=== PATIENT | male | born 1950 | race Caucasian/White ===

== ENCOUNTER → 2020-04-24 14:23 | Outpatient (BNVA) | payer MEDICARE, OTHER, SELFPAY | PROVIDERS: Family Provider Family Medicine; PCP Family Medicine; Visit Provider Internal Medicine Rheumatology | DX: M25.50 Pain in unspecified joint (principal); Z79.899 Other long term (current) drug therapy; Z11.1 Encounter for screening for respiratory tuberculosis; Z11.59 Encounter for screening for other viral diseases; R76.8 Other specified abnormal immunological findings in serum; M67.911 Unspecified disorder of synovium and tendon, right shoulder; R79.82 Elevated C-reactive protein (CRP); Z72.89 Other problems related to lifestyle; M19.049 Primary osteoarthritis, unspecified hand | CPT/HCPCS: 36415; 80076; 82306; 82565; 85025; 85651; 86140; 86480; 86704; 86803; 87340; 99214 ==

== ENCOUNTER 2020-04-30 13:17 | Outpatient (CLI) | payer MEDICARE, OTHER, SELFPAY ==
--- NOTE | 2020-04-30 13:23 | XR_ITS ---
WS: [id number] PROCEDURE: XR chest 2V* [id number] CLINICAL INFORMATION: inflammatory arthritis COMPARISON: FINDINGS: Heart: Normal cardiac silhouette. Aortic calcification. Tortuous thoracic aorta. Lungs: Moderate chronic emphysematous changes. No acute pulmonary infiltrates. No focal pneumonia. Tr humberto atelectasis/fibrosis left lower lobe. Bones: Normal visualized bony structures. XR/XR chest 2V* [id number] IMPRESSION: No acute chest findings.
== END 2020-04-30 13:18 | disposition home or self-care (01) ==
LOC: RADWPI 13:21
PROVIDERS: Family Provider Family Medicine; PCP Family Medicine; Visit Provider Internal Medicine Rheumatology
DX: M19.90 Unspecified osteoarthritis, unspecified site (principal)
CPT/HCPCS: 71046

== ENCOUNTER 2020-05-08 08:57 | Outpatient (CLI) | payer MEDICARE, OTHER, SELFPAY ==
--- NOTE | 2020-05-08 08:45 | MR_ITS ---
WS: [id number] MRI RIGHT SHOULDER NONCONTRAST TECHNIQUE: Sagittal T2, coronal T1, T2 and proton density imaging. Axial gradient PDE imaging. CLINICAL INFORMATION: M75.80 Other shoulder lesions, unspecified shoulder COMPARISON: None. FINDINGS: Moderate degenerative arthritis at the AC joint with small amount of subacromial/subdeltoid fluid. Mi ld edema at the AC joint. Subacromial space is preserved. No significant downsloping of the acromion. Supraspinatus is normal. Tiny undersurface tear at the distal insertion. Infraspinatus is normal. Normal teres minor and subscapularis. Distal subscapularis tendon appears in tact. Normal biceps tendon in the bicipital groove. Glenoid labrum appears grossly normal. Normal bic eps labral anchor. Normal visualized bone marrow signal. MR/MR shoulder RT wo con* [id number] IMPRESSION: 1. Moderate degenerative arthritis AC joint with a small amount of subacromial /subdeltoid fluid. 2. Tiny insertional tear at the supraspinatus insertion. Supraspinatus and rot ator cuff otherwise normal. 3. Normal biceps tendon in the bicipital groove. 4. Glenoid labrum and biceps labral anchor appears grossly intact.
== END 2020-05-08 08:58 | disposition home or self-care (01) ==
LOC: RADSHAW 09:04
PROVIDERS: PCP Family Medicine; Visit Provider Internal Medicine Rheumatology
DX: M75.81 Other shoulder lesions, right shoulder (principal); M19.011 Primary osteoarthritis, right shoulder; M75.101 Unspecified rotator cuff tear or rupture of right shoulder, not specified as traumatic; X58.XXXA Exposure to other specified factors, initial encounter
CPT/HCPCS: 73221

== ENCOUNTER → 2020-05-31 09:07 | Outpatient (BNVA) | payer MEDICARE, OTHER, SELFPAY | PROVIDERS: PCP Family Medicine; Visit Provider Internal Medicine Rheumatology | DX: M19.90 Unspecified osteoarthritis, unspecified site (principal); M67.911 Unspecified disorder of synovium and tendon, right shoulder; Z79.899 Other long term (current) drug therapy; R76.8 Other specified abnormal immunological findings in serum; Z79.52 Long term (current) use of systemic steroids | CPT/HCPCS: 20610; 36415; 82310; 84443; 99214; J1030 ==

== ENCOUNTER → 2020-08-28 15:06 | Outpatient (BNVA) | payer MEDICARE, OTHER, SELFPAY | PROVIDERS: PCP Family Medicine; Visit Provider Internal Medicine Rheumatology | DX: M06.041 Rheumatoid arthritis without rheumatoid factor, right hand (principal); M06.042 Rheumatoid arthritis without rheumatoid factor, left hand; Z79.899 Other long term (current) drug therapy; R76.8 Other specified abnormal immunological findings in serum; R79.82 Elevated C-reactive protein (CRP); M67.911 Unspecified disorder of synovium and tendon, right shoulder; E06.3 Autoimmune thyroiditis; Z79.52 Long term (current) use of systemic steroids | CPT/HCPCS: 99214 ==

== ENCOUNTER → 2020-09-26 13:59 | Outpatient (BNVA) | payer MEDICARE, OTHER, SELFPAY | PROVIDERS: PCP Family Medicine; Visit Provider Internal Medicine Rheumatology | DX: Z79.899 Other long term (current) drug therapy (principal) | CPT/HCPCS: 36415; 80076; 82565; 85025; 85651; 86140 ==

== ENCOUNTER → 2021-01-03 09:01 | Outpatient (BNVA) | payer MEDICARE, OTHER, SELFPAY | PROVIDERS: PCP Family Medicine; Visit Provider Internal Medicine Rheumatology | DX: M06.041 Rheumatoid arthritis without rheumatoid factor, right hand (principal); M06.042 Rheumatoid arthritis without rheumatoid factor, left hand; Z79.899 Other long term (current) drug therapy; E06.3 Autoimmune thyroiditis; R76.8 Other specified abnormal immunological findings in serum; R79.82 Elevated C-reactive protein (CRP); M67.911 Unspecified disorder of synovium and tendon, right shoulder; M19.90 Unspecified osteoarthritis, unspecified site; Z79.52 Long term (current) use of systemic steroids; Z87.891 Personal history of nicotine dependence | CPT/HCPCS: 99214 ==

== ENCOUNTER 2021-02-21 14:09 | Outpatient (CLI) | payer MEDICARE, OTHER, SELFPAY ==
[2021-02-21 15:19] LABS: Basophils % 0.4 %; Eosinophils # 0.2 10^3/uL (0.0-0.8); Eosinophils % 2.3 %; Hematocrit 40.4 % (42.0-52.0); Hemoglobin 13.1 g/dL (11.7-16.6); Lymphocytes # 1.8 10^3/uL (0.8-4.8); Lymphocytes % 24.3 %; Mean Corpuscular HGB Conc 32.4 g/dL (30.0-36.0); Mean Corpuscular Hemoglobin 31.1 pg (28.0-34.0); Mean Platelet Volume 8.9 fL (7.4-10.4); Monocytes # 0.5 10^3/uL (0.2-0.9); Monocytes % 6.1 %; Neutrophils # 4.92 10^3/uL (1.8-7.7); Neutrophils % 66.8 %; Nucleated Red Blood Cells % 0 %; Platelet Count 379 10^3/cmm (130-400); Red Blood Count 4.21 10^6/uL (4.1-5.3); White Blood Count 7.4 10^3/uL (4.0-10.0)
[2021-02-21 15:43] LABS: Alanine Aminotransferase 14 U/L (0-41); Alkaline Phosphatase 68 IU/L (40-130); Aspartate Amino Transferase 14 U/L (0-40); Globulin 2.3 g/dL (1.3-4.6); Total Bilirubin 0.3 mg/dL (0.15-1.2); Total Protein 6.3 g/dL (6.6-8.7)
== END 2021-02-21 14:10 | disposition home or self-care (01) ==
PROVIDERS: PCP Family Medicine; Visit Provider Internal Medicine Rheumatology
DX: Z79.899 Other long term (current) drug therapy (principal)
CPT/HCPCS: 36415; 80076; 82565; 85025

== ENCOUNTER → 2021-05-02 11:00 | Outpatient (BNVA) | payer MEDICARE, OTHER, SELFPAY | PROVIDERS: PCP Family Medicine; Visit Provider Internal Medicine Rheumatology | DX: M06.041 Rheumatoid arthritis without rheumatoid factor, right hand (principal); M06.042 Rheumatoid arthritis without rheumatoid factor, left hand; Z79.899 Other long term (current) drug therapy; E06.3 Autoimmune thyroiditis; R76.8 Other specified abnormal immunological findings in serum; R79.82 Elevated C-reactive protein (CRP); Z71.89 Other specified counseling; Z87.891 Personal history of nicotine dependence | CPT/HCPCS: 99214 ==

== ENCOUNTER 2021-05-18 20:04 | Inpatient (IN) | payer MEDICARE, OTHER, SELFPAY ==
[2021-05-18 21:06] VITALS: BP 105/64; PULSE 118; RESP 18; TEMP 39.5; O2SAT 93; BMI 28.7
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
[2021-05-18 22:13] LABS: ABG PCO2 35.6 mmHg (35-45); ABG PH Result 7.47 (7.35-7.45); Arterial Blood Gas Hematocrit 38.9 % (42-52); Base Excess ABG 2.7 mmol/L (-2.0-2.0); Blood Gas Allen Test Pos; Blood Gas Sample Type Arterial; HCO3 ABG 26.1 mmol/L (22-26); PO2 ABG 54.1 mmHg (80.0-100.0)
[2021-05-18 22:14] VITALS: BP 118/77; PULSE 111; RESP 19; O2SAT 95
[2021-05-18 22:15] LABS: Blood Gas Operator Identificat HARKR; Blood Gas Sample Site Radial, right; Oxygen Device ROOM AIR
--- NOTE | 2021-05-18 22:25 | PC.NURSE ---
Addendum entered by Mary Alice Cárdenas RN 05/18/21 22:26: Patient placed on 2 liters of oxygen via nasal cannula. Original Note: Patient oxygen saturation going between 88-92%.
[2021-05-18 22:28] LABS: Basophils % 0.7 %; Hematocrit 37.7 % (42.0-52.0); Hemoglobin 12.5 g/dL (11.7-16.6); Lymphocytes # 0.5 10^3/uL (0.8-4.8); Lymphocytes % 11.9 %; Mean Corpuscular HGB Conc 33.2 g/dL (30.0-36.0); Mean Corpuscular Hemoglobin 31.6 pg (28.0-34.0); Mean Corpuscular Volume 95.4 fL (80-94); Mean Platelet Volume 9.2 fL (7.4-10.4); Monocytes # 0.2 10^3/uL (0.2-0.9); Monocytes % 3.6 %; Neutrophils # 3.69 10^3/uL (1.8-7.7); Neutrophils % 82.9 %; Nucleated Red Blood Cells % 0 %; Platelet Count 256 10^3/cmm (130-400); Red Blood Count 3.95 10^6/uL (4.1-5.3); Red Cell Distribution Width 12.7 % (12.1-15.1); White Blood Count 4.5 10^3/uL (4.0-10.0)
[2021-05-18 22:45] VITALS: BP 119/79; PULSE 111; RESP 17; O2SAT 90
[2021-05-18 22:58] LABS: Alanine Aminotransferase 56 U/L (0-41); Albumin Level 3.8 g/dL (3.5-5.2); Alkaline Phosphatase 121 IU/L (40-130); Anion Gap 15.7 (5-19); Aspartate Amino Transferase 50 U/L (0-40); Blood Urea Nitrogen 17 mg/dL (8-23); C Reactive Protein 106.6 mg/L (0.0-4.9); Calcium 8.2 mg/dL (8.5-10.5); Carbon Dioxide 23 mmol/L (22-29); Chloride 89 mmol/L (98-107); Globulin 2.4 g/dL (1.3-4.6); Glucose 106 mg/dL (65-115); Osmolality Calculated 260 mOsm/kg (285-295); Potassium 3.7 mmol/L (3.5-5.1); Sodium 124 mmol/L (136-145); Total Bilirubin 0.4 mg/dL (0.15-1.2); Total Protein 6.2 g/dL (6.6-8.7)
[2021-05-18 23:00] VITALS: BP 128/77; PULSE 114; RESP 14; O2SAT 92
[2021-05-18 23:17] LABS: Fibrinogen 408 mg/dL (174-498)
[2021-05-18 23:20] LABS: Ferritin 948 ng/mL (30-400)
[2021-05-18 23:25] LABS: Glucose Urine UA Norm (Normal); Ketones Urine Negative (Negative); Protein Urine Neg (Negative); Specific Gravity, Urine 1.015 (1.005-1.030); Urine Appearance Clear (CLEAR); Urine Color Yellow (Yellow); pH Urine 5 (5-7)
[2021-05-18 23:26] LABS: Add Urine Microscopic? YES; Bilirubin Urine Neg (Negative); Blood Urine 3+ (Negative); Leukocyte Esterase Urine Negative (Negative); Nitrate Urine Negative (Negative); Urobilinogen Urine Norm (Negative)
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
[2021-05-18 23:33] LABS: Bacteria Urine 2+ /hpf; Mucus Urine TRACE /hpf; RBC Urine 0-4 /hpf (0-2); Squamous Epithelial Cell Urine 0-4 /hpf (0-5)
[2021-05-18 23:34] LABS: Add Urine Culture? No
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
[2021-05-18 23:55] VITALS: BP 101/78; PULSE 108; RESP 17; O2SAT 93
[2021-05-18] MEDS: acetaminophen 325 mg Tablet 650 MG PO (23:55)
[2021-05-18] MEDS: sodium chloride 0.9% 1,000 ML 999 ML IV (23:55)
[2021-05-18 23:58] LABS: SARS Covid-2 Antigen Negative (Negative)
[2021-05-19] VITALS (15 sets, daily range): BP systolic 99–128; BP diastolic 60–72; PULSE 87–117; RESP 14–19; TEMP 36.7–39.2; O2SAT 90–96
[2021-05-19 00:15] LABS: Creatine Phosphokinase 142 U/L (39-308)
[2021-05-19] MEDS: sodium chloride 0.9% 1,000 ML 999 ML IV (01:13)
[2021-05-19 01:24] LABS: Lactate (Lactic Acid level) 0.7 mmol/L (0.5-2.2)
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
[2021-05-19] MEDS: vancomycin 1,000 MG in sodium chloride 0.9% 250 ML 250 MG IV (03:09)
[2021-05-19] MEDS: acetaminophen 500 mg Tablet 1000 MG PO (03:42)
[2021-05-19] MEDS: pantoprazole DR 40 mg Tablet PO (08:38)
[2021-05-19] MEDS: HYDROcodone-acetaminophen 5-325 mg Tablet 1 TAB PO (09:11)
[2021-05-19] MEDS: sodium chloride 0.9% 1,000 ML 75 ML IV (09:13)
[2021-05-19] MEDS: cefTRIAXone 2,000 MG in sodium chloride 0.9% (plus) 50 ML 100 MG IV (13:19)
[2021-05-19] MEDS: doxycycline 100 MG in sodium chloride 0.9% (plus) 100 ML IV (13:20)
[2021-05-19] MEDS: vancomycin 1,500 MG/300 ML PIGGYBACK 200 MG IV (15:10)
[2021-05-19] MEDS: acetaminophen 325 mg Tablet 650 MG PO ×2 (16:33→23:53)
--- NOTE | 2021-05-19 16:48 | PC.NURSE ---
notified Dr Wild that patient is more confused.
[2021-05-19 17:06] LABS: Monoscreen Negative (Negative)
[2021-05-19] MEDS: acyclovir 500 MG in sodium chloride 0.9% (100 ml) 100 ML 110 MG IV (17:06)
--- NOTE | 2021-05-19 18:22 | PC.NURSE ---
patient requesting diazepam and trazodone to help him sleep. notified Dr Wild
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
[2021-05-19 22:50] LABS: Sodium 131 mmol/L (136-145)
[2021-05-19] MEDS: diazePAM 5 mg Tablet PO (22:52)
[2021-05-20] VITALS (9 sets, daily range): BP systolic 101–143; BP diastolic 63–74; PULSE 88–115; RESP 12–18; TEMP 36.7–39.6; O2SAT 92–97
[2021-05-20] MEDS: predniSONE 5 mg Tablet 15 MG PO ×2 (00:08→09:29)
[2021-05-20] MEDS: cefTRIAXone 2,000 MG in sodium chloride 0.9% (plus) 50 ML 100 MG IV ×3 (00:10→23:44)
[2021-05-20] MEDS: doxycycline 100 MG in sodium chloride 0.9% (plus) 100 ML IV ×2 (02:12→12:40)
[2021-05-20 02:38] LABS: Basophils % 0.5 %; Hematocrit 32.4 % (42.0-52.0); Hemoglobin 11.2 g/dL (11.7-16.6); Lymphocytes # 0.3 10^3/uL (0.8-4.8); Lymphocytes % 9.2 %; Mean Corpuscular HGB Conc 34.6 g/dL (30.0-36.0); Mean Corpuscular Hemoglobin 32.7 pg (28.0-34.0); Mean Corpuscular Volume 94.5 fL (80-94); Mean Platelet Volume 9.7 fL (7.4-10.4); Monocytes # 0.1 10^3/uL (0.2-0.9); Monocytes % 2.2 %; Neutrophils # 3.23 10^3/uL (1.8-7.7); Neutrophils % 87.6 %; Nucleated Red Blood Cells % 0 %; Platelet Count 166 10^3/cmm (130-400); Red Blood Count 3.43 10^6/uL (4.1-5.3); Red Cell Distribution Width 12.6 % (12.1-15.1); White Blood Count 3.7 10^3/uL (4.0-10.0)
[2021-05-20 03:14] LABS: Alanine Aminotransferase 49 U/L (0-41); Alkaline Phosphatase 136 IU/L (40-130); Anion Gap 15.5 (5-19); Aspartate Amino Transferase 60 U/L (0-40); Blood Urea Nitrogen 11 mg/dL (8-23); Calcium 7.8 mg/dL (8.5-10.5); Carbon Dioxide 23 mmol/L (22-29); Chloride 95 mmol/L (98-107); Globulin 2.4 g/dL (1.3-4.6); Glucose 116 mg/dL (65-115); Osmolality Calculated 270 mOsm/kg (285-295); Potassium 3.5 mmol/L (3.5-5.1); Sodium 130 mmol/L (136-145); Total Bilirubin 0.5 mg/dL (0.15-1.2); Total Protein 5.4 g/dL (6.6-8.7)
[2021-05-20] MEDS: acyclovir 500 MG in sodium chloride 0.9% (100 ml) 100 ML 110 MG IV ×3 (03:26→18:02)
[2021-05-20 03:38] LABS: Procalcitonin 0.61 ng/mL (0-0.5)
[2021-05-20 03:45] LABS: Slide Review Slide Review Perform
[2021-05-20] MEDS: vancomycin 1,500 MG/300 ML PIGGYBACK 200 MG IV (09:29)
[2021-05-20] MEDS: levothyroxine 88 mcg Tablet PO (09:29)
[2021-05-20] MEDS: pantoprazole DR 40 mg Tablet PO (09:29)
--- NOTE | 2021-05-20 10:13 | PC.NURSE ---
called and updated patient's on patient's conditions. [phone]
[2021-05-20 13:27] LABS: Lyme AB Screen <0.90 index
[2021-05-20] MEDS: acetaminophen 325 mg Tablet 650 MG PO (13:44)
--- NOTE | 2021-05-20 14:36 | PC.NURSE ---
Called Lab to check if COVID results are back on patient. She said she will call me back after she calls [facility].
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
[2021-05-20 18:50] LABS: Anion Gap 13.6 (5-19); Blood Urea Nitrogen 10 mg/dL (8-23); Carbon Dioxide 22 mmol/L (22-29); Chloride 98 mmol/L (98-107); Glucose 157 mg/dL (65-115); Osmolality Calculated 272 mOsm/kg (285-295); Potassium 3.6 mmol/L (3.5-5.1); Sodium 130 mmol/L (136-145)
[2021-05-20 19:07] LABS: Calcium 7.8 mg/dL (8.5-10.5)
[2021-05-20 19:57] LABS: Potassium, Radom Urine 15 mmol/L; Urine Random Chloride 31 mmol/L; Urine Random Sodium 42 mmol/L
[2021-05-20] MEDS: trazodone 150 mg Tablet PO (21:41)
[2021-05-20] MEDS: diazePAM 5 mg Tablet PO (21:41)
[2021-05-21] VITALS (9 sets, daily range): BP systolic 100–125; BP diastolic 57–79; PULSE 76–112; RESP 16–18; TEMP 36.4–38.1; O2SAT 92–96
[2021-05-21] MEDS: acetaminophen 325 mg Tablet 650 MG PO ×2 (00:36→09:06)
[2021-05-21] MEDS: doxycycline 100 MG in sodium chloride 0.9% (plus) 100 ML IV ×2 (00:37→14:04)
[2021-05-21] MEDS: acyclovir 500 MG in sodium chloride 0.9% (100 ml) 100 ML 100 MG IV (00:38)
[2021-05-21] MEDS: vancomycin 1,500 MG/300 ML PIGGYBACK 200 MG IV ×2 (02:02→21:24)
[2021-05-21] MEDS: predniSONE 5 mg Tablet 15 MG PO (09:06)
[2021-05-21] MEDS: levothyroxine 88 mcg Tablet PO (09:06)
[2021-05-21] MEDS: pantoprazole DR 40 mg Tablet PO (09:06)
[2021-05-21] MEDS: acyclovir 500 MG in sodium chloride 0.9% (100 ml) 100 ML 110 MG IV ×2 (10:16→17:28)
[2021-05-21 10:22] LABS: Quest SARS-CoV-2 RNA NOT DETECTED (NOT DETECTED)
--- NOTE | 2021-05-21 10:55 | PC.NURSE ---
patient's PCR is negative. food writer notified patient's .
--- NOTE | 2021-05-21 10:58 | PC.NURSE ---
patient's PCR negative. communications writer notified Dr Mccall, and asked if isolation order can be discontinued.
[2021-05-21] MEDS: cefTRIAXone 2,000 MG in sodium chloride 0.9% (plus) 50 ML 100 MG IV (12:18)
--- NOTE | 2021-05-21 13:18 | XR_ITS ---
WS: [id number] XR chest 2V* [id number] REASON FOR EXAM: unexplained fever FINDINGS: Moderately tortuous thoracic aorta without aneurysmal dilatation. Normal heart size. No active pulmonary parenchymal or pleural abnormality. The bony thorax is intact. XR/XR chest 2V* [id number] IMPRESSION: No acute chest abnormality.
--- NOTE | 2021-05-21 13:20 | USCV_ITS ---
Francisco Emerson Age: 71 Gender: M : 1950 Exam Date: 05/21/2021 14:48 Ordering Phys: Curly Mccall DO Technologist: Anthony Sommers [place]am Location[place] [facility] [place] [facility] [place] Indication: UNEXPLAINED FEVER HISTORY: Lower extremity swelling. PROCEDURES: Venous duplex imaging was performed in bilateral lower extremities. The following venous structures were evaluated: common femoral vein, profunda vein, proximal portion of the greater saphenous vein, superficial femoral vein, and the popliteal vein. In addition, the posterior tibial and peroneal trunk were evaluated. FINDINGS: Normal 2-D Doppler and augmentation and compressibility throughout the lower extremity venous structures. Additional imaging through the proximal calf veins also reveals no thrombus. Limited evaluation of the greater saphenous vein is patent with no thrombus.. CONCLUSIONS No evidence of right lower extremity DVT. No evidence of left lower extremity DVT. Mark Anthony Ordonez MD (Electronically Signed) Final Date: 21 May 2021 15:43 S
--- NOTE | 2021-05-21 13:22 | PC.NURSE ---
rcvd verbal order from Dr Mccall for Chest xray, urine culture and US of BLE. conventional mortgage underwriter put orders in.
[2021-05-21 14:27] LABS: Coronavirus Test Green County Not Detected
[2021-05-21 14:47] LABS: Anion Gap 14.4 (5-19); Blood Urea Nitrogen 10 mg/dL (8-23); Calcium 7.7 mg/dL (8.5-10.5); Carbon Dioxide 20 mmol/L (22-29); Chloride 100 mmol/L (98-107); Creatinine Clr Calc Pharmacy 84.0421; Glucose 180 mg/dL (65-115); Osmolality Calculated 276 mOsm/kg (285-295); Potassium 3.4 mmol/L (3.5-5.1); Sodium 131 mmol/L (136-145); Thyroid Stimulating Hormone 1.79 uIU/mL (0.27-4.20)
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
[2021-05-21 20:51] LABS: Vancomycin Trough 6.8 ug/mL (10-15)
[2021-05-21] MEDS: HYDROcodone-acetaminophen 5-325 mg Tablet 1 TAB PO (21:23)
[2021-05-21] MEDS: diazePAM 5 mg Tablet PO (21:23)
[2021-05-21] MEDS: trazodone 150 mg Tablet PO (21:24)
[2021-05-22] VITALS: BP 125/76; PULSE 87; RESP 18; TEMP 36.5; O2SAT 93
[2021-05-22] MEDS: cefTRIAXone 2,000 MG in sodium chloride 0.9% (plus) 50 ML 100 MG IV ×2 (00:02→13:50)
--- NOTE | 2021-05-22 03:13 | PC.PHAR ---
Pharmacokinetic dosing service Date: 05/22/21 Time: 312 Patient: Floor: Weight: 90.718 Kilograms Vancomycin single level analysis: Current dose being given: mg Current dosing interval: hrs Current infusion time (hrs): 1 Single level Trough Data: Trough level obtained: 6.8 mcg/ml Timing of trough - # of hrs before next dose: 1 Hrs Desired peak: 40 mcg/ml Desired trough: 15 mcg/ml Diagnosis: Relevant medical/social history: Cultures and sensitivities: Other labs: Estimated PK Parameters: New rate constant (deena): 0.077 hr-1 Half-life: 9.00 Hours Vd from levels: 81.65 Liters (0.7 L/kg) CLvanco= 6.287 L/hr Estimated New Dose and Interval Recommended dose: 2211.7 mg Recommended interval: 13.7 Hrs Patient response: Patient is responding to treatment [yes/no] wbc decreasing, S/SX reduced [yes/no] Renal function is stable/unstable Recommendations: Give Vancomycin 1500 mg q 12 hrs. Infuse over 1.5 hrs Expected Cpeak: 28.8 mcg/mL Expected Ctrough: 12.8 mcg/mL AUC 0-24 /MG Data: MG 0.5 mcg/mL: AUC/MG: 954.4 MG 1.0 mcg/mL: AUC/MG: 477.2 Recommended labs and intervals: Measure Bun and Scr 3 times/week. Renal dosing of other antibiotics (review renal dosing of other medications and list guidelines here): Thank you for the consult, will continue to follow. Signature:
Paige Zamora [facility]
--- NOTE | 2021-05-22 03:35 | PC.NURSE ---
IV infiltated/changed Pt has a new 18g PIDD off in right forearm. Tolerated well.
[2021-05-22] MEDS: doxycycline 100 MG in sodium chloride 0.9% (plus) 100 ML IV ×2 (03:55→13:49)
[2021-05-22 04:10] VITALS: BP 121/76; PULSE 80; RESP 18; TEMP 36.6; O2SAT 95
[2021-05-22] MEDS: acyclovir 500 MG in sodium chloride 0.9% (100 ml) 100 ML 110 MG IV ×2 (06:00→09:35)
--- NOTE | 2021-05-22 07:40 | PC.NURSE ---
PM Pt is calm, kind, cooperative. No issues. Pt has a new 20g IV in the right forearm. He accidentally removed the one on his left ac
[2021-05-22] MEDS: levothyroxine 88 mcg Tablet PO (08:31)
[2021-05-22] MEDS: predniSONE 5 mg Tablet 15 MG PO (08:31)
[2021-05-22] MEDS: pantoprazole DR 40 mg Tablet PO (08:31)
[2021-05-22] MEDS: vancomycin 1,500 MG/300 ML PIGGYBACK 200 MG IV (08:32)
[2021-05-22 08:59] VITALS: BP 106/68; PULSE 76; RESP 15; TEMP 37.1; O2SAT 95
[2021-05-22] MEDS: potassium chloride ER 20 mEq Tablet 40 MEQ PO (09:35)
--- NOTE | 2021-05-22 09:49 | PC.CHAP ---
Pastoral Care Encounter/Spiritual Assessment Type of Contact [] Declined diagnostic medical sonographer visit [] Patient/Family/Request visit [] Outpatient visit [] Follow-up visit [] Physician referral [] Code/Alert [x] Routine visit [] Staff referral [] Actively dying [] Patient sleeping [] Family support [] [] Out of room [] Palliative care [] [] Receiving care in room [] Pre-surgical visit [] Trauma [] Long length of stay [] ICU visit [] Other: Relational/Emotional Strength [] Patient feels connected with others/family/visitors/staff [] Distress [] Loneliness/isolation [] Abandonment Spirituality of Patient [x] Person of Linette [] Attends Hindu of their Linette [x] Believes in Prayer [] Reads Bible or Jewish materials [] There are Spiritual issues to be addressed Surface Supply Breathing Apparatus Interventions x[] Prayer [] Active listening [] Non-anxious presence [] Spiritual/emotional support [] Crisis/trauma care [] Spiritual counseling [] Bereavement support [] Provided bereavement packet [] Provided Bible/devotional materials [] Provided toy/stuffed animal, coloring book to patient or family member [] Provided Communion [] Anointing/[place] [] Salvation [x] Completed spiritual assessment [] Other: Impact on Illness or Injury [] Angry [] Fearful [] Anxious [] Often cries [] Exhaustion [] Unable to work [] Unable to attend cheondoism [] Unable to walk/stand [] Unable to read [] Unable to drive [] Unable to eat/drink [] Unable to sleep [] Unable to be with family [] Patient intubated [] Other: Summary Time spent with patient 10 min
[2021-05-22 11:15] LABS: Magnesium 1.8 mg/dL (1.7-2.3)
--- NOTE | 2021-05-22 11:57 | PC.SOCIAL ---
IMM UPDATE Gave patient IMM update. Provided him copy of pg 2. Verbalized understanding. 05/22/21 @ 0921. Initialed, dated, timed and placed in chart.
[2021-05-22 12:12] VITALS: BP 116/74; PULSE 84; RESP 16; TEMP 37; O2SAT 96
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
[2021-05-22 15:48] LABS: Osmolality Urine 255 mOsm/kg (50-1200)
[2021-05-22 15:48] LABS: Osmolality Serum 275 mOsm/kg (278-305)
[2021-05-22 16:14] VITALS: BP 110/72; PULSE 77; RESP 16; TEMP 37.1; O2SAT 92
[2021-05-22 17:11] VITALS: BP 110/72; PULSE 77; RESP 16; TEMP 37.1; O2SAT 92
[2021-05-23 17:12] LABS: RMSF IGG NOT DETECTED; RMSF IGM NOT DETECTED
[2021-05-23 17:31] LABS: E. Chaffeensis AB IGG <1:64; E. Chaffeensis AB IGM <1:20
== END 2021-05-22 16:30 | disposition home or self-care (01) | DRG 71 ==
LOC: ER 23:58 → MEDSURG 05-19 02:00
PROVIDERS: Family Medicine; Internal Medicine; Admitting Provider Hospitalist; Emergency Provider Emergency Medicine; PCP Family Medicine; Visit Provider Internal Medicine
DX: G93.40 Encephalopathy, unspecified (principal); S22.41XA Multiple fractures of ribs, right side, initial encounter for closed fracture; E87.1 Hypo-osmolality and hyponatremia; T50.2X5A Adverse effect of carbonic-anhydrase inhibitors, benzothiadiazides and other diuretics, initial encounter; T14.8XXA Other injury of unspecified body region, initial encounter; W57.XXXA Bitten or stung by nonvenomous insect and other nonvenomous arthropods, initial encounter; R50.9 Fever, unspecified; V27.4XXA Motorcycle driver injured in collision with fixed or stationary object in traffic accident, initial encounter; R74.01 Elevation of levels of liver transaminase levels; K21.9 Gastro-esophageal reflux disease without esophagitis; I25.10 Atherosclerotic heart disease of native coronary artery without angina pectoris; E06.3 Autoimmune thyroiditis; I10 Essential (primary) hypertension; E03.9 Hypothyroidism, unspecified; M06.00 Rheumatoid arthritis without rheumatoid factor, unspecified site; Z87.891 Personal history of nicotine dependence; Z79.52 Long term (current) use of systemic steroids
CPT/HCPCS: 36415; 36600; 70450; 71045; 71046; 71250; 74176; 80048; 80053; 80202; 81001; 82436; 82550; 82728; 82803; 83605; 83735; 83930; 83935; 84133; 84145; 84295; 84300; 84443; 85025; 85384; 86140; 86308; 86618; 86666; 86757; 87040; 87086; 87426; 87635; 93970; 94664; 96361; 96365; 99285; J0133; J0696; J0743; J3370; J3490; J7030; J7050; J7512

== ENCOUNTER → 2021-05-24 09:16 | Outpatient (BNVA) | payer MEDICARE, OTHER, SELFPAY | PROVIDERS: PCP Family Medicine; Visit Provider Orthopaedic Surgery | DX: S43.101A Unspecified dislocation of right acromioclavicular joint, initial encounter (principal); V29.40XA Motorcycle driver injured in collision with unspecified motor vehicles in traffic accident, initial encounter | CPT/HCPCS: 73030 ==

== ENCOUNTER → 2021-08-16 11:06 | Outpatient (BNVA) | payer MEDICARE, OTHER, SELFPAY | PROVIDERS: PCP Family Medicine; Visit Provider Orthopaedic Surgery | DX: Z20.822 Contact with and (suspected) exposure to COVID-19 (principal) | CPT/HCPCS: 87635 ==

== ENCOUNTER 2021-08-22 10:30 | Day surgery (SDC) | payer MEDICARE, OTHER, SELFPAY ==
[2021-08-21 13:50] VITALS: BMI 28.7
[2021-08-22] VITALS (9 sets, daily range): BP systolic 137–163; BP diastolic 90–110; PULSE 66–73; RESP 18–25; TEMP 36.2–36.7; O2SAT 89–97
[2021-08-22] MEDS: sodium chloride 0.9% 1,000 ML 30 ML IV (11:00)
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
--- NOTE | 2021-08-22 12:51 | W.PM.OPSUD ---
Surgery/Procedure H&P Update DATE OF PROCEDURE: August 22, 2021 DATE H&P PERFORMED: 07/30/21 H&P UPDATE INFORMATION: I have reviewed H&P completed within last 30 days PREOP DIAGNOSIS: Right acromioclavicular separation PLANNED PROCEDURE: Operation Date: 08/22/21 11:40 Proposed Procedures p right coracoid ligament reconstruction/ 48003 S43.109A(Right) - Marc Baca MD s Distal Clavicle Resection(Right) - Marc Baca MD
--- NOTE | 2021-08-22 13:53 | SUR.OPER ---
Called and notified of surgical start.
--- NOTE | 2021-08-22 14:42 | PM.OP ---
Operative Report Date of procedure: August 22, 2021 Pre-op Diagnosis: Right acromioclavicular separation Post-op diagnosis: same Post-op Findings: Same Procedure Done: Coracoclavicular ligament reconstruction, distal clavicle excision Implants: Arthrex acromioclavicular reconstruction DogBone x2 Arthrex Speedgraft Pathology: none sent Surgeon: Marc Baca Anesthesia: General and Nerve Block Estimated blood loss (mL): 10 Findings: The patient had proximal migration of his clavicle relative to his acromion which reduced with elevation of the humerus Condition: stable Disposition: PACU Procedure: The patient was taken to the operating room and given a general anesthesia. He is prepped and draped in the beachchair position with his right shoulder exposed. A 6 cm long incision was made from the superior clavicle extending distally just lateral to the coracoid. The deltoid fascia was split in the periosteum dorsally over the clavicle elevated. Dissection was accomplished lateral to expose the acromioclavicular joint. An oscillating saw was used to remove approximately 8 mm of distal clavicle. Del Castillo were made on the clavicle at a point 2.5 mm from the joint anteriorly and 4.2 mm posteriorly to represent points near the insertion of the conoid and trapezoid ligaments respectively. The coracoid was isolated with like dissection accomplished medially and laterally to the dorsum of the coracoid. A coracoid passer was used to shuttle 1 relay suture around the coracoid. Next the coracoclavicular ligament guide was passed beneath the coracoid and the stylus passed to the dorsal clavicle. A drill was passed through for cortices. Through the drill bit a guidewire was passed. This a guidewire was used to shuttle the DogBone from the dorsal clavicle through the coracoid. A second dog bone was applied and sutures tightened on around the clavicle dog bone tightened securing the device bringing the clavicle into anatomic position in relationship with the acromion. Next the shuttling suture was used to passed a speed graft around the coracoid and clavicle. 1 limb was allowed to exit at the posterior juan on the clavicle and one limb anteriorly. The 2 grafts ends were then sutured together with interrupted Ethibond suture. The button sutures were as well passed around the construct. Anterior posterior stability of the reconstructed acromioclavicular joint was checked and found to be satisfactory. The deltoid and dorsal periosteum were reapproximated with 0 Vicryl. Subcutaneous tissue closed with 2-0 Vicryl. The skin was closed with a running 4-0 Monocryl. Sterile dressings were applied. The patient was placed in a sling, extubated, and taken recovery in stable condition.
[2021-08-22] MEDS: fentaNYL 50 mcg/mL INJ 2mL IVP ×2 (14:55→15:00)
--- NOTE | 2021-08-22 15:32 | ANE.PACU2 ---
Inpatient post-anesthesia follow up: Airway intact: Yes Vital signs: Temperature 97.2 F Pulse Rate 66 Respiratory Rate 20 Blood Pressure 146/90 Pulse Oximetry 96 Oxygen Delivery Me thod Nasal Cannula Oxygen Flow Rate 2 Fraction of Inspir ed Oxygen Hydration adequate: Yes Nausea and vomiting: No Pain level: 1 Mental status: Baseline
[2021-08-22] MEDS: oxyCODONE 5 mg IR Tab/Cap PO (15:57)
== END 2021-08-22 16:20 | disposition home or self-care (01) ==
PROVIDERS: PCP Family Medicine; Visit Provider Orthopaedic Surgery
PROC: (CPT 23120; principal; 2021-08-22 11:30)
PROC: (CPT 23120; 2021-08-22 11:30)
DX: S43.101A Unspecified dislocation of right acromioclavicular joint, initial encounter (principal); V29.9XXA Motorcycle rider (driver) (passenger) injured in unspecified traffic accident, initial encounter; I10 Essential (primary) hypertension; E03.9 Hypothyroidism, unspecified; M06.042 Rheumatoid arthritis without rheumatoid factor, left hand; M06.041 Rheumatoid arthritis without rheumatoid factor, right hand; K21.9 Gastro-esophageal reflux disease without esophagitis; I25.10 Atherosclerotic heart disease of native coronary artery without angina pectoris; Z87.891 Personal history of nicotine dependence; Z79.82 Long term (current) use of aspirin; Z79.52 Long term (current) use of systemic steroids
CPT/HCPCS: 23120; 23550; C1713; J0690; J1100; J1170; J1580; J2250; J2370; J2405; J2704; J2795; J3010; J3490; J7030

== ENCOUNTER → 2021-09-25 11:48 | Outpatient (BNVA) | payer MEDICARE, OTHER, SELFPAY | PROVIDERS: PCP Family Medicine; Visit Provider Family Medicine | DX: Z20.822 Contact with and (suspected) exposure to COVID-19 (principal); Z01.812 Encounter for preprocedural laboratory examination | CPT/HCPCS: 87635 ==

== ENCOUNTER 2021-09-30 11:04 | Outpatient (CLI) | payer MEDICARE, OTHER, SELFPAY ==
[2021-09-30 11:25] LABS: Basophils # 0.1 10^3/uL (0.0-0.1); Basophils % 0.6 %; Eosinophils # 0.1 10^3/uL (0.0-0.8); Eosinophils % 0.9 %; Hematocrit 42.6 % (42.0-52.0); Hemoglobin 13.7 g/dL (11.7-16.6); Lymphocytes % 18.9 %; Mean Corpuscular HGB Conc 32.2 g/dL (30.0-36.0); Mean Corpuscular Hemoglobin 30.2 pg (28.0-34.0); Mean Corpuscular Volume 93.8 fl (80-94); Mean Platelet Volume 8.9 fL (7.4-10.4); Monocytes # 1.1 10^3/uL (0.2-0.9); Neutrophils # 7.42 10^3/uL (1.8-7.7); Neutrophils % 69.1 %; Nucleated Red Blood Cells % 0 %; Platelet Count 338 10^3/cmm (130-400); Red Blood Count 4.54 10^6/uL (4.1-5.3); Red Cell Distribution Width 12.7 % (12.1-15.1); White Blood Count 10.7 10^3/uL (4.0-10.0)
[2021-09-30 11:56] LABS: C Reactive Protein 33.8 mg/L (0.0-4.9)
[2021-10-02 11:58] LABS: Erythrocyte Sedimentation Rate 11 mm/hr (0-10)
== END 2021-09-30 11:05 | disposition home or self-care (01) ==
LOC: LAB 11:09
PROVIDERS: PCP Family Medicine; Visit Provider Clinical Nurse Specialist Adult Health
DX: J20.9 Acute bronchitis, unspecified (principal)
CPT/HCPCS: 85025; 85651; 86140

== ENCOUNTER → 2021-10-16 16:15 | Outpatient (BNVA) | payer MEDICARE, OTHER, SELFPAY | PROVIDERS: PCP Family Medicine; Visit Provider Family Medicine | DX: Z01.812 Encounter for preprocedural laboratory examination (principal) | CPT/HCPCS: 87635 ==

== ENCOUNTER 2021-10-22 08:09 | Outpatient (CLI) | payer MEDICARE, OTHER, SELFPAY ==
--- NOTE | 2021-10-22 13:38 | PFTS_ITS ---
Date of Study:10/22/21 Date of Dictation: MECHANICS: Forced vital capacity (FVC) is normal. Forced expiratory volume in one second (FEV1) is normal. FEV1/FVC is normal. FLOW VOLUME LOOP: No peak expiratory flow and expiratory flow volume loop. LUNG VOLUMES: Total lung capacity (TLC) is increased. Residual volume (RV) is increased. DIFFUSING CAPACITY FOR CARBON MONOXIDE: Normal. INTERPRETATION: The prebronchodilator spirometry is normal. No postbronchodilator spirometry was performed. Lung volumes are consistent with air trapping and mild hyperinflation. Gas exchange (DLCO) is normal. MTDD
== END 2021-10-22 08:10 | disposition home or self-care (01) ==
LOC: RT 08:10
PROVIDERS: PCP Family Medicine; Visit Provider Family Medicine
DX: J43.9 Emphysema, unspecified (principal)
CPT/HCPCS: 94010; 94726; 94729

== ENCOUNTER → 2022-03-19 13:17 | Outpatient (BNVA) | payer MEDICARE, OTHER, SELFPAY | PROVIDERS: PCP Family Medicine; Visit Provider Internal Medicine | DX: I25.10 Atherosclerotic heart disease of native coronary artery without angina pectoris (principal); R00.2 Palpitations; I10 Essential (primary) hypertension; R07.9 Chest pain, unspecified; Z87.891 Personal history of nicotine dependence | CPT/HCPCS: 99214 ==

== ENCOUNTER 2022-04-30 07:12 | Outpatient (CLI) | payer MEDICARE, OTHER, SELFPAY ==
[2022-04-30 07:52] VITALS: BMI 28.7
--- NOTE | 2022-04-30 07:53 | ECG_ITS ---
[facility] Test Date: 2022-04-30 Pat Name: Francisco Emerson Department: Room: Gender: Male [employer] Field Supervisor: Miguelina Pino : 1950 Requested By: Philipp Romero Order Number: [id number] Sam MD: Philipp Romero M.D. Interpretive Statements NAME OF STUDY: EXERCISE SESTAMIBI STRESS TEST INDICATION: [Coronary Artery Disease] EXERCISE DATA: The patient was exercised by To protocol. Baseline heart rate was 73 beats per minute. Baseline blood pressure was 131/84 millimeters of mercury. Target heart rate was 126 beats per minute. Maximum heart rate achieved was 141, which was 111% of the target heart rate. Maximum blood pressure was 154/103 millimeters of mercury. Total exercise time was 5 minutes 45 seconds. Maximum METs achieved was 7. The reason for ending the test was completion of the protocol. The patient complained of shortness of breath during the stress test, which then resolved at the end of the test. ELECTROCARDIOGRAM: BASELINE: Showed sinus rhythm, left axis deviation, no significant ST-T changes at the baseline noted. [] EXERCISE: At the peak exercise level, [] No significant ST-T changes suggestive of ischemia noted. [] RECOVERY: During the recovery period, heart rate dropped appropriately. No significant ST-T changes in the recovery suggestive of ischemia noted. [] CONCLUSION: 1. Exercise capacity fair 2. Heart rate response was appropriate 3. Blood pressure response was appropriate 4. Symptoms not suggestive of ischemia. 5. Electrocardiogram portion of the stress test was not suggestive of ischemia. 6. Nuclear scan will be documented separately. Electronically Signed On 05-17-2022 12:35:40 CDT by Philipp Romero M.D. [email or web address]
--- NOTE | 2022-04-30 07:55 | NMCV_ITS ---
NM debra perf SPECT r/s* [id number] Francisco Emerson Age: 71 Gender: M : 1950 Exam Date: 04/30/2022 09:02 Ordering Phys: Philipp Romero M.D ([email or web address]) Technologist: JUAREZ Albright Exam Location: [facility] Indications: ATHEROSCLEROTIC HEART DISEASE OF [place] CORONARY ARTERY STRESS TEST Please see separate stress test report in [facility] for full findings IMAGE PROTOCOL Rest/Stress 1 Exercise Day Radiopharmaceutical Dose (mCi) Administration Site Administered by Rest: Tc-99m 10.9 IV JUAREZ Castillo Sestamimarvin Stress:Tc-99m 32.7 IV JUAREZ Castillo Sestamimarvin Rest: 30-Apr-2022 60 Discovery 630 Stress: 30-Apr-2022 15 Discovery 630 Radiopharmaceutical was injected at 89 % maximum heart rate. Images obtained in supine and prone position. SPECT RESULTS Technical Quality: Excellent Raw Data Analysis: Normal Image Corrections: No attenuation or motion correction applied Summed Stress Score: 4 Summed Rest Score: 8 Summed Difference Score: 0 PERFUSION FINDINGS There is a medium sized, fixed perfusion defect seen in the apical lateral wall. 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 IMPRESSIONS 1. Abnormal myocardial perfusion imaging with small to moderate sized infarct seen in the left circumflex artery territory. No evidence of ischemia 2. LV systolic function is normal Philipp Romero MD (Electronically Signed) Final Date: 02 May 2022 14:47 S
[2022-04-30 10:33] VITALS: BP 129/86; PULSE 86
== END 2022-04-30 07:13 | disposition home or self-care (01) ==
LOC: CDL 07:16
PROVIDERS: PCP Family Medicine; Visit Provider Internal Medicine
DX: I25.10 Atherosclerotic heart disease of native coronary artery without angina pectoris (principal); I25.2 Old myocardial infarction
CPT/HCPCS: 78452; 93017; A9500

== ENCOUNTER → 2022-09-30 13:03 | Outpatient (BNVA) | payer MEDICARE, OTHER, SELFPAY | PROVIDERS: PCP Family Medicine; Visit Provider Internal Medicine | DX: I25.10 Atherosclerotic heart disease of native coronary artery without angina pectoris (principal); R00.2 Palpitations; I10 Essential (primary) hypertension; R06.02 Shortness of breath; Z87.891 Personal history of nicotine dependence | CPT/HCPCS: 99214 ==

== ENCOUNTER 2022-11-03 12:45 | Outpatient (CLI) | payer MEDICARE, OTHER, SELFPAY ==
--- NOTE | 2022-11-03 13:00 | USCV_ITS ---
Francisco Emerson Age: 72 Gender: M : 1950 Exam Date: 11/03/2022 13:14 Ordering Phys: Philipp Romero M.D ([email or web address]) Technologist: Exam Location[place] [facility] [place] Indication: hx cad BP: 125 / 72 HR: 114 Rhythm: Sinus Technical Quality: Adequate MEASUREMENTS (Male / Female) Normal Values 2D ECHO LV Diastolic Diameter PLAX 3.5 cm 4.2 - 5.9 / 3.9 - 5.3 cm LV Systolic Diameter PLAX 2.6 cm IVS Diastolic Thickness 1.5 cm 0.6 - 1.0 / 0.6 - 0.9 cm IVS Systolic Thickness 1.6 cm LVPW Diastolic Thickness 1.4 cm 0.6 - 1.0 / 0.6 - 0.9 cm LVPW Systolic Thickness 1.5 cm LVOT Diameter 2.0 cm LV Ejection Fraction 2D Teich 51.0 % LV Ejection Fraction MOD 2C 60.6 % LV Ejection Fraction 2C AL 61.6 % LA Diameter 3.4 cm IVC Diameter 1.6 cm M-MODE Aortic Annulus Diameter 3.4 cm LA Ao Ratio MM 1.3 MV E Point Septal Separation 2.0 cm DOPPLER AV Peak Velocity 115.0 cm/s LVOT Peak Velocity 77.0 cm/s AV Area Cont Eq vti 2.1 cm squared AV Area Cont Eq pk 2.1 cm squared MV Area PHT 5.0 cm squared Mitral E to A Ratio 1.4 MV E' Velocity 106.0 cm/s TR Peak Velocity 147.0 cm/s TR Peak Gradient 8.6 mmHg TV Peak E Velocity 124.0 cm/s Right Atrial Pressure 3.0 mmHg Pulmonary Artery Systolic Pressu 11.6 mmHg RV Acceleration Time 0.1 s FINDINGS Left Ventricle Left ventricle is normal in size. LV systolic function is normal with EF of 55 to 60%. No regional wall motion abnormalities are seen. Right Ventricle Normal in size and function Right Atrium Normal in size Left Atrium Normal in size Mitral Valve Mild mitral annular calcification is seen. No significant regurgitation Aortic Valve Aortic valve is thickened. No significant stenosis or regurgitation. Tricuspid Valve Mild tricuspid regurgitation. Pulmonary artery systolic pressure is normal. Pulmonic Valve Not well-visualized Pericardium Normal Aorta Normal in size IVC Appears to be normal CONCLUSIONS LV systolic function is normal with EF 55 to 60%. Mild tricuspid regurgitation Mild mitral annular calcification is seen No comparison studies available Philipp Romero MD (Electronically Signed) Final Date: 07 November 2022 14:57 S
== END 2022-11-03 12:46 | disposition home or self-care (01) ==
LOC: RAD 12:48
PROVIDERS: PCP Family Medicine; Visit Provider Internal Medicine
DX: R06.02 Shortness of breath (principal); I08.1 Rheumatic disorders of both mitral and tricuspid valves
CPT/HCPCS: 93306

== ENCOUNTER → 2023-05-19 13:59 | Outpatient (BNVA) | payer MEDICARE, OTHER, SELFPAY | PROVIDERS: PCP Family Medicine; Visit Provider Family Medicine | DX: E87.1 Hypo-osmolality and hyponatremia (principal); F32.A Depression, unspecified; F41.9 Anxiety disorder, unspecified; I10 Essential (primary) hypertension; R76.8 Other specified abnormal immunological findings in serum; R79.82 Elevated C-reactive protein (CRP); E03.9 Hypothyroidism, unspecified; Z13.6 Encounter for screening for cardiovascular disorders; M25.569 Pain in unspecified knee | CPT/HCPCS: 80053; 80061; 82607; 84443; 85025; 86140 ==

== ENCOUNTER 2023-05-26 11:12 | Outpatient (CLI) | payer MEDICARE, OTHER, SELFPAY ==
--- NOTE | 2023-05-26 11:30 | XRR_ITS ---
PROCEDURE INFORMATION: Exam: XR Bilateral Knees, Standing, Anteroposterior Exam date and time: 05/26/2023 11:36 AM Age: 73 years old Clinical indication: Pain; Knee; Bilateral; Additional info: M25.569 - pain in unspecified knee TECHNIQUE: Imaging protocol: Radiologic exam of the bilateral knees. Views: Standing frontal. COMPARISON: CR XR knee LT 1-2V [id number] 05/31/2019 3:29 PM FINDINGS: Bones/joints: Osteopenia. No radiographic evidence of acute fracture or dislocation. Moderate medial joint space narrowing on the right. Mild lateral joint space narrowing and osteophytosis on the left. No erosive or destructive change. No lytic or blastic lesion. Soft tissues: Grossly unremarkable. XR/[place] [id number] IMPRESSION: Mild osteoarthrosis.
== END 2023-05-26 11:13 | disposition home or self-care (01) ==
LOC: RAD 11:18
PROVIDERS: PCP Family Medicine; Visit Provider Family Medicine
DX: M17.0 Bilateral primary osteoarthritis of knee (principal)
CPT/HCPCS: 73565

== ENCOUNTER → 2023-06-30 14:25 | Outpatient (BNVA) | payer MEDICARE, OTHER, SELFPAY | PROVIDERS: PCP Family Medicine; Visit Provider Internal Medicine | DX: I25.10 Atherosclerotic heart disease of native coronary artery without angina pectoris (principal); R00.2 Palpitations; I10 Essential (primary) hypertension; Z87.891 Personal history of nicotine dependence | CPT/HCPCS: 99213 ==

== ENCOUNTER → 2023-12-11 10:40 | Outpatient (BNVA) | payer MEDICARE, OTHER, SELFPAY | PROVIDERS: PCP Family Medicine; Visit Provider Nurse Practitioner Family | DX: M17.11 Unilateral primary osteoarthritis, right knee (principal) | CPT/HCPCS: 73562 ==

== ENCOUNTER → 2024-01-29 11:10 | Outpatient (BNVA) | payer MEDICARE, OTHER, SELFPAY | PROVIDERS: PCP Family Medicine; Visit Provider Family Medicine | DX: R04.2 Hemoptysis (principal); R05.3 Chronic cough; E03.9 Hypothyroidism, unspecified; J22 Unspecified acute lower respiratory infection | CPT/HCPCS: 80053; 85025; 86140 ==

== ENCOUNTER 2024-02-11 15:57 | Outpatient (CLI) | payer MEDICARE, OTHER, SELFPAY ==
--- NOTE | 2024-02-11 16:00 | CT_ITS ---
WS: [id number] CT chest w con* [id number] HISTORY: blood in sputum, chronic cough TECHNIQUE: Axial imaging performed through the thorax. Coronal and sagittal reformats are submitted. All CT scans at [facility] use at least one of these dose optimization techniques: automated exposure control; mA and/or kV adjustment per patient size (includes targeted exams where dose is mat ched to clinical indication); or iterative reconstruction. CONTRAST: Omnipaque 350; 100 mL IV. DLP: 497.02 mGy.cm COMPARISON: 05/19/2021, 02/23/2016 Lungs and central airway: Advanced hyperexpansion and bullous emphysema. No pulmonary mass or nodule. No pneumonia. Segmental bronchiectasis medial segment RIGHT middle lobe. 4 mm perifissural nodule at the junction of the RIGHT fissures. There are a few areas of thin linear atelectasis at the lung bas es. Subsegmental atelectasis adjacent to the RIGHT heart unchanged since 2020. No endobronchial lesio ns. Pleura: Normal. No pleural effusion. Heart and pericardium: Normal size heart with no pericardial effusion. Mediastinum and oseas: No mediastinum or hilar adenopathy. Vessels: Mild atherosclerosis aorta. No aneurysm. Normal size pulmonary artery. Chest wall and lower neck: No soft tissue masses. Upper abdomen: Moderate sized hiatal hernia. 10 mm cortical cyst upper pole RIGHT kidney. No adrenal mass. The visualized gallbladder is negative. Osseous structures: Postoperative clip associated with the RIGHT shoulder. Prior resection of the dis andrew RIGHT clavicle. IMPRESSION: 1. Advanced bullous emphysema. 2. No mass, pneumonia or nodule. 3. Segmental bronchiectasis medial segment RIGHT middle lobe. 4. Moderate-sized hiatal hernia. 5. No mediastinal or hilar adenopathy.
[2024-02-11] MEDS: iohexol 350 mg/mL 500 mL Btl (per mL) IV (16:38)
== END 2024-02-11 15:58 | disposition home or self-care (01) ==
LOC: RAD 15:57
PROVIDERS: PCP Family Medicine; Visit Provider Family Medicine
DX: R05.3 Chronic cough (principal); R04.2 Hemoptysis; J43.8 Other emphysema; J47.9 Bronchiectasis, uncomplicated; K44.9 Diaphragmatic hernia without obstruction or gangrene
CPT/HCPCS: 71260; Q9967

== ENCOUNTER → 2024-02-18 11:18 | Outpatient (BNVA) | payer MEDICARE, OTHER, SELFPAY | PROVIDERS: PCP Family Medicine; Visit Provider Family Medicine | DX: R05.3 Chronic cough (principal); J43.9 Emphysema, unspecified | CPT/HCPCS: 86003; 86008 ==

== ENCOUNTER → 2024-11-15 11:39 | Outpatient (BNVA) | payer MEDICARE, OTHER, SELFPAY | PROVIDERS: PCP Family Medicine; Visit Provider Family Medicine | DX: F32.A Depression, unspecified (principal); F41.9 Anxiety disorder, unspecified; I10 Essential (primary) hypertension; I25.10 Atherosclerotic heart disease of native coronary artery without angina pectoris; E03.9 Hypothyroidism, unspecified; J43.9 Emphysema, unspecified | CPT/HCPCS: 80053; 80061; 84443; 85025 ==

== ENCOUNTER 2025-01-06 11:03 | Outpatient (CLI) | payer MEDICARE, OTHER, SELFPAY ==
[2025-01-06 12:20] LABS: Thyroid Stimulating Hormone 2.44 uIU/mL (0.27-4.20)
== END 2025-01-06 11:04 | disposition home or self-care (01) ==
LOC: LAB 11:08
PROVIDERS: PCP Family Medicine; Visit Provider Family Medicine
DX: E03.9 Hypothyroidism, unspecified (principal)
CPT/HCPCS: 36415; 84443

== ENCOUNTER 2025-01-15 10:52 | Inpatient (IN) | payer MEDICARE, OTHER, SELFPAY ==
[2025-01-15] VITALS (15 sets, daily range): BP systolic 107–125; BP diastolic 62–83; PULSE 74–100; RESP 15–21; TEMP 36.5–36.9; O2SAT 87–94; BMI 29.5
--- NOTE | 2025-01-15 11:12 | XRR_ITS ---
PROCEDURE INFORMATION: Exam: XR Chest Exam date and time: 01/15/2025 11:38 AM Age: 74 years old Clinical indication: PT here via pov with C/O fever. PT states PT has had intermittent fever since Thursday. PT temp was 101 this morning per . PT took ibuprofen this morning at approx 0900, unknown dosage at this time. PT reports a HX of copd. ; Additional info: Possible sepsis TECHNIQUE: Imaging protocol: Radiologic exam of the chest. Views: 1 view. COMPARISON: CT chest w con* [id number] 02/11/2024 4:27 PM FINDINGS: Lungs: Hazy consolidative opacity in the right mid lung concerning for pneumonia. Pleural spaces: Hazy opacity at the left lung base may represent small pleural effusion and/or atelectasis. Superimposed infectious etiology is not excluded. No significant right-sided pleural effusion. No pneumothorax. Heart/Mediastinum: The cardiomediastinal silhouette is stable and likely within normal limits. Bones/joints: Unremarkable. XR/XR chest 1V portable [id number] IMPRESSION: 1. Hazy consolidative opacity in the right mid lung concerning for pneumonia. 2. Hazy opacity at the left lung base likely reflecting small pleural effusion and/or atelectasis although superimposed infectious etiology is not excluded.
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
[2025-01-15] MEDS: sodium chloride 0.9% 2,721.54 ML 2721.54 ML IV (11:41)
[2025-01-15 11:43] LABS: Basophils % 0.3 %; Eosinophils % 0.2 %; Hematocrit 40.3 % (37-53); Lymphocytes # 1.3 10^3/uL (0.8-4.8); Lymphocytes % 9.7 %; Mean Corpuscular HGB Conc 32.8 g/dL (30-55); Mean Corpuscular Hemoglobin 30.5 pg (27-33); Mean Corpuscular Volume 93.1 fl (82-101); Mean Platelet Volume 8.7 fL (7.4-10.4); Monocytes # 0.8 10^3/uL (0.2-0.9); Monocytes % 5.9 %; Neutrophils # 11.56 10^3/uL (1.8-7.7); Neutrophils % 83.5 %; Nucleated Red Blood Cells % 0 %; Platelet Count 399 10^3/cmm (157-399); Red Blood Count 4.33 10^6/uL (3.85-5.65); Red Cell Distribution Width 12.9 % (12.1-15.1); White Blood Count 13.84 10^3/uL (3.29-11.43)
--- NOTE | 2025-01-15 11:49 | ECG_ITS ---
[facility] Date: 2025-01[facility]15 Pat Name: Francisco Emerson Department: Room: Gender: Male [employer]: : 1950 Requested By: Valerio Mortensen Order Number: [id number] Sam MD: Patience Hand M.D. Measurements Intervals [place] Rate: 84 P: 41 ND: 176 QRS: -42 QRSD: 141 T: 1 QT: 381 QTc: 451 Interpretive Statements SINUS RHYTHM LEFT AXIS DEVIATION [QRS AXIS < -30] INTRAVENTRICULAR CONDUCTION DELAY [130+ ms QRS DURATION] No previous ECG available for comparison Electronically Signed On 01-15-2025 22:49:08 CDT by Patience Hand M.D. [email or web address]
[2025-01-15 11:55] LABS: INR 0.87 (0.8-1.2)
[2025-01-15 12:05] LABS: Lactic Sepsis W/Reflex 1.6 mmol/L (0.5-2.2)
[2025-01-15 12:16] LABS: Alanine Aminotransferase 19 U/L (0-41); Albumin Level 3.9 g/dL (3.5-5.2); Alkaline Phosphatase 76 U/L (40-130); Anion Gap 15.8 (5-19); Aspartate Amino Transferase 14 U/L (0-40); Blood Urea Nitrogen 19 mg/dL (8-23); Calcium 9.1 mg/dL (8.5-10.5); Carbon Dioxide 23 mmol/L (22-29); Chloride 101 mmol/L (98-107); Globulin 3.1 g/dL (1.3-4.6); Glucose 105 mg/dL (65-115); Magnesium 1.6 mg/dL (1.7-2.3); Osmolality Calculated 285 mOsm/kg (285-295); Potassium 3.8 mmol/L (3.5-5.1); Sodium 136 mmol/L (136-145); Thyroid Stimulating Hormone 1.62 uIU/mL (0.27-4.20); Total Bilirubin 0.6 mg/dL (0.15-1.2)
[2025-01-15] MEDS: cefTRIAXone 1,000 mg SDV 1000 MG IVP (12:35)
[2025-01-15] MEDS: AZITHROMYCIN ADD-Vantage 500 MG in 0.9% NaCl ADD-Vantage 250 ML 250 MG IV (12:35)
[2025-01-15 12:52] LABS: Influenza A NEGATIVE (Negative); Influenza B NEGATIVE (Negative); Respiratory Syncytial Virus Ce NEGATIVE (Negative); SARS-CoV-2 PCR NEGATIVE (Negative)
--- OUTSIDE RECORDS SUMMARY | 2025-01-15 13:59 | XMS_ITS | Encounter Summary ---
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 Name Role Phone Renny Gonzalez DO Primary Care Provider [phone] Encounter Details Date Type Department Care Team (Latest Contact Info) Description 05/31/2014 Ancillary Orders [facility] Orthopedics - Orthopedic [facility] [address] [place] [address] Lilli Mejias PA-C NO ADDRESS ON FILE Retained orthopedic hardware (Primary Dx); S/P hardware removal Social History Tobacco Use Types Packs/Day Years Used Date Smoking Tobacco: Former Cigarettes 1 40 0 05/16/1966 - 05/16/2006 Smokeless Tobacco: Former Chew Quit: 05/16/2006 Alcohol Use Standard Drinks/Week Comments No 0 (1 standard drink = 0.6 oz pur e alcohol) last drink 2005 Sex and Gender Information Value Date Recorded Sex Assigned at Not on file 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 These reveal postsurgical changes as expected. Procedure Note Gilberto Hand MD - 06/05/2014 AP and lateral views of his left wrist have been ordered, performed, andinterpreted today in the office. These reveal postsurgical changes asexpected. us Lilli Mejias PA-C DIAGNOSTIC IMAGING ORDERABL ES Final Result documented in this encounter Visit Diagnoses Diagnosis Retained orthopedic hardware- Primary Reserved for inherently not codable concepts WITHOUT codable children S/P hardware removal documented in this encounter Care Teams Helmet Hat Brim Cutter Relationship Specialty Start Date End Date Renny Gonzalez DO [address] [place] [id number] PCP - General Family Practice 05/18/14 documented as of this encounter
--- OUTSIDE RECORDS SUMMARY | 2025-01-15 13:59 | XMS_ITS | Clinical Summary ---
Author Organization [facility] Chervickie tone Address [address] [place] [address] Care Team Providers Care Academic Affairs Vice President Name Role Phone Renny Gonzalez DO Primary Care Provider Allergies Active Allergy Reactions Criticality Noted Date Comments Penicillins Rash Low 12/21/2008 Medications TRAZODONE 150 mg Oral Tab Take 150 mg by mouth daily at bedtime. Active VALIUM PO Take 5 mg by mouth 3 times daily as needed. Active OMEPRAZOLE ORAL Take by mouth Daily LATE. Active Levothyroxine 50 mcg Capsule Take by mouth daily before breakfast. 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 Active cetirizine (WAL-ZYR) 10 mg tablet Take 10 mg by mouth daily central control room operator. 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 Gender Identity Not on file Sexual Orientation Not on file Occupation Industry Job Start Date Job End Date Not on file Not on file Not on file Not on file Not on file Not on file Not on file Not on file Last Filed Vital Signs Vital Sign Reading Time Taken Comments Blood Pressure 133/79 06/27/2015 8:52 AM CDT Pulse 81 05/31/2014 10:05 AM CDT Temperature 36.5 ??C (97.7 ??F) 05/18/2014 2:33 PM CD T Respiratory Rate 15 05/18/2014 2:33 PM CDT Oxygen Saturation 96% 05/18/2014 3:15 PM CDT Inhaled Oxygen Concentration - - Weight 90.7 kg (200 lb) 06/27/2015 8:52 AM CDT Height 177.8 cm (5' 10 ) 06/27/2015 8:52 AM CDT Body Mass Index 28.7 06/27/2015 8:52 AM CDT Plan of Treatment Health Maintenance Due Date Last Done Comments DTAP/TDAP/TD VACCINES (1 - Tdap) 1968 COLORECTAL SCREENING 1994 Colorectal Cancer Screening 1994 FIT-DNA Q 3 years 1994 FIT/FOBT Q 1 year 1994 Flex Sig/CT Colonography Q 5 years 1994 PNEUMOCOCCAL VACCINE 50+ YEARS (1 of 1 - PCV) 05/01/19 99 ZOSTER VACCINE (1 of 2) 1999 RSV VACCINE (60+ or ) (1 - 1-dose 75+ series) 2024 INFLUENZA VACCINE (#1) 2024 Medical Devices Explanted Type Area Core Checker Device Identifier Shelf Expiration Date Model / Serial / Lot Plate Explanted:Qty: 1 on 05/18/2014 at [facility] Plate Left: Wrist Self Tapping Screws Explanted:Qty: 6 on 05/18/2014 at [facility] Screw Left: Wrist Insurance [facility] [address] MEDICARE PART A AND B [facility] Advance Directives For more information, please contact: [phone] * Full Code (Latest Code Status on File) Date Activated Date Inactivated Comments 05/18/2014 10:31 AM 05/18/2014 5:50 PM * Full Code Date Activated Date Inactivated Comments 05/18/2014 10:08 AM 05/18/2014 10:31 AM Care Teams Academic Affairs Vice President Relationship Specialty [place] [address] [place] [phone] PCP - General Family Practice 05/18/14
--- OUTSIDE RECORDS SUMMARY | 2025-01-15 13:59 | XMS_ITS ---
Author Organization [facility] Address [address] [facility] [address] Care Team Providers Care Hand Therapist Name Role Phone Renny Gonzalez Primary Care Provider Marc Thompson [facility] [phone] REASON FOR VISIT LEFT CARPAL TUNNEL RELEASE Encounters Encounter Location Date Provider Diagnosis [facility] [address] [place] [address], [place] [address] 12/22/2024 Marc Baca Plan Of Treatment No Information Progress Notes * Francisco EMERSON KDOB:[birth year] (74 yo M)Acc No.[id number]:12/22/2024 Patient:?Francisco EMERSON Provider:?Marc Baca MD :1950???Age:74 Y???Sex:Male Kimani e:12/22/2024 Address:[address] [place] [phone] Pcp:Renny Gonzalez * Billing Information: * Visit Code:? * Procedure Codes:? * Sign off status: Completed true * Provider:?Marc Baca MD Date:?12/22 Generated for Antonio wing/Adelina/eTransmitting on:?01/15/2025 01:59 PM CDT
--- OUTSIDE RECORDS SUMMARY | 2025-01-15 13:59 | XMS_ITS | Clinical Summary ---
Author Organization [facility] Address [address] [facility] Attn: Epic Prelude ADT ANNIE TIAN [address] Care Team Providers Care Center Receptionist Name Role Phone Renny Gonzalez DO Primary Care Provider [phone] Allergies Active Allergy Reactions Criticality Noted Date Comments Penicillins Rash Low 12/21/2008 Active Problems Problem Noted Date Diagnosed Date Retained orthopedic hardware 05/18/2014 Left wrist pain 04/26/2014 Family History Relation Name Status Comments Father Mother Social History Tobacco Use Types Packs/Day Years Used Date Smoking Tobacco: Former Cigarettes Q uit: 05/16/2006 Smokeless Tobacco: Former Quit: 05/16/2006 Alcohol Use Standard Drinks/Week Comments No 0 (1 standard drink = 0.6 oz pur e alcohol) Sex and Gender Information Value Date Recorded Sex Assigned at Not on file 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 Gender Identity Not on file Sexual Orientation Not on file Last Filed Vital Signs Vital Sign Reading Time Taken Comments Blood Pressure 133/79 06/27/2015 8:52 AM CDT Pulse - - Temperature - - Respiratory Rate - - Oxygen Saturation - - Inhaled Oxygen Concentration - - Weight 90.7 [...] (#1) 2024 Medical Devices Explanted Type Area Asset Protection Associate Device Identifier Shelf Expiration Date Model / Serial / Lot Plate Explanted:Qty: 1 on 05/18/2014 Plate Left: Wrist Self Tapping Screws Explanted:Qty: 6 on 05/18/2014 Screw Left: Wrist Care Teams Center Receptionist Relationship Specialty Start Date End Date Renny Gonzalez DO [address] [place] [phone] PCP - General Family Practice 05/18/14
--- OUTSIDE RECORDS SUMMARY | 2025-01-15 13:59 | XMS_ITS | Patient Health Record ---
Author Organization [facility] Address [address] [place] [address] Care Team Providers Care Warehouse Delivery Manager Name Role Phone Renny Gonzalez Primary Care Provider Marc Thompson Unavailable [phone] Matthew Zapata Unavailable [phone] Crhissy Matias Unavailable Allergies Allergen (clinical drug ingredient) Drug/Non Drug Allergy documented on EMR Reaction Allergy Type Onset Date Status Penicillin Unknown Drug Allergy Active Reason For Referral Reason Emphysema - CT from [facility], disc received. 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 Closing referral. Diagnosis 1 Emphysema, unspecifi ed (J43.9) Referring Provider First Name Renny Referring Provider Last Name Lisa Referring Provider Speciality Family Med icine Referred Organization [facility] Referred Provider Matthew Zapata Referred Address [address] [place] [address] [address] [place],[address], Referred Provider Specialty Pulmonary [facility] General Notes Nely Cevallos 024 11:33:17 AM >Faxed request for disc to be mailed, Nely Cevallos 04/26/2024 03:28:04 PM >Disc received. In PACs.-04/26/2024, Nely Cevallos 04/26/2024 04:10:15 PM >04/26: Gave Report to [facility] to Review, Nely Cevallos 04/27/2024 07:56:04 AM >04/27: 6 months per Mart Zapata Marie 05/12/2024 01:11:24 PM > asked me to call his as she is in charge of his appointments. Called her number and there was no answer..beeped as though it was disconnected and unable to leave message., Nely Cevallos 05/13/2024 11:11:11 AM >05/13: asked me to call his , KG, unable to leave message, sent text Referral Priority Routine Reason Bilateral EMG/NCV Diagnosis 1 Numbness of left perez d (R20.0) Referring Provider First Name Marc Referring Provider Last Name Phuong Referring Provider Speciality Orthopedic Surgery Referred Organization [facility] Referred Provider Kenisha Matias Referred Address [address] [place] [address],[facility],[address], General Notes Ab Zimmerman 10/26 05:21:31 PM >Second attempt at scheduling patient. Tried both numbers and have no way of leaving voicemail. Will attempt third time next week., Ab Zimmerman 11/18/2024 01:41:48 PM >Tried the [phone] number I got from Dr. Baca's office. Will try again next thursday. Referral Priority Routine Reason Bilateral EMG/NCV Diagnosis 1 Numbness of left perez d (R20.0) Referral Organization [facility] Referring Provider First Name Marc Referring Provider Last Name Phuong Referring Provider Speciality Orthopedic Surgery Referred Provider Kenisha Matias Referred Provider Specialty Pain Medicin e Referral Priority Routine Medications Medication SIG (Take, Route, Frequency, Duration) Notes Start Date End Date Status traZODone HCl 150 MG 1 tablet at bedtime Orally Once a day Active diazePAM 10 MG 1 tablet as needed Orally Once a day Active Levothyroxine Sodium 100 MCG 1 capsule i n the morning on an empty stomach Orally Once a day Active hydroCHLOROthiazide 25 MG 1 tablet in th e morning Orally Once a day Active Lisinopril 10 MG 1 tablet Orally Once a day Active predniSONE 5 MG 1 tablet Orally Once a day Active Omeprazole 40 MG 1 capsule 30 minutes before morning meal Orally Once a day Active Vitamin B12 1000 MCG as directed Orally Active Ibuprofen 200 MG 1 tablet with food o r milk as needed Orally Three times a day Active Social History Tobacco Use: Social History Observation Description Date Details (start date - stop date) Former Smoker NA - NA xTobacco Use/Smoking Question Answer Notes Are you a former smoker How long has it been since you last smoked? > 10 years Alcohol Screen (Audit-C) Question Answer Notes Did you have a drink containing alcohol in the p ast year? No Points 0 Interpretation Negative Problems Problem Type SNOMED Code ICD Code Onset Dates Problem Status W/U Status Risk Notes Problem Emphysema (27839245) Emphysema, unspecified (J43.9) Active confirmed Problem 285116233835636 Primary osteoarthritis of right knee (M17.11) Active confirmed Problem 42706213832959912 Bilateral carp al tunnel syndrome (G56.03) Active confirmed Problem 7614455000 Right knee pain, unspecified chronicity (M25.561) Active confirmed Problem 464746862470186 Left carpal tunnel syndrome (G56.02) Active confirmed Problem Carpal tunnel syndrome (97338027) Acute carpal tunnel syndrome of left wrist (G56.02) Active confirmed Vital Signs Heart Rate 71 /min 12/05/2024 Blood pressure diastolic 60 mm Hg 12/05/2024 Oximetry 98 % 12/05/2024 Height-cm 173.99 cm 12/05/2024 Weight-kg 90.2 kg 12/05/2024 Height 68.5 in 12/05/2024 Blood pressure systolic 128 mm Hg 12/05/2024 Weight 198.85 lbs 12/05/2024 BMI 29.79 kg/m2 12/05/2024 Encounters Encounter Location Date Provider Diagnosis [facility] [address] [place] [address] 10/14/2024 Marc Baca Numbness of left hand R20.0 [facility] [address] [place] [address] 11/29/2024 Chrissy stevens Bilateral carpal tunnel syndrome G56.03 [facility] [address] [place] [address] 12/05/2024 Marc Baca Left carpal tunnel syndrome G56.02 [facility] [address] [place] [address], [place] [address] 12/22/2024 Marc Baca [facility] [address] [place] [address] 01/06/2025 Marc Baca Postoperative state Z98.890 [facility] [address] [place] [address] [place] [address] 04/26/2024 Matthew Zapata [facility] [address] [place] [address] 11/02/2024 Marc Baca [facility] [address] [place] [address] 12/06/2024 Marc Baca [facility] [address] [place] [address] 12/20/2024 Marc Baca Assessments Encounter Date Diagnosis (ICD Code) Assessment Notes Treatment Notes Treatment Clinical Notes Section Notes 10/14/2024 Numbness of left hand (ICD-10 - R20.0) Examination would seem to suggest some carpal tunnel syndrome with pain rating up into his posterior shoulder. Certainly cervical radiculopathy is another consideration. I discussed options with him. I think EMG nerve conduction studies would be beneficial to sort this out. I will see him back for results of that test. 11/29/2024 Bilateral carpal tunnel syndrome (ICD-10 - G56.03) 12/05/2024 Left carpal tunnel syndrome (ICD-10 - G56.02) I discussed carpal tunnel syndrome with the patient. I discussed treatment options. Certainly could continue with conservative measures however their symptoms are functionally limiting and have not been completely controlled with conservative measures. I think the best choice in this situation would be carpal tunnel release. I discussed carpal tunnel release with him. I told him that oftentimes it is best at preventing the progression of symptoms whether than being completely curative. They should expect a fairly reliable improvement in wrist pain and paresthesias. I discussed risk of surgery including the possibility of continued pain numbness and paresthesias. I discussed risk of bleeding infection. I discussed the possible need for further procedure. This will be done under loupe magnification and the risk of blood vessel and nerve injury should be minimal. They agree to proceed we will set him up for a time in the operating room at their convenience. Ultimate anesthesia decisions will be held with the anesthesiologist . 01/06/2025 Postoperative state (ICD-10 - Z98.890) Francisco is doing well. I told him that the improvement in pain is a good sign. I think the numbness in his thumb should continue to improve. I will see him back on an as-needed basis Plan Of Treatment Pending Test Test Name Order Date Knee 1 or 2V 12/16/2023 Electrocardiogram 12 Lead [id number] 12/05/2024 Insurance Providers Payer Name Payer Address Payer Phone Subscriber Number Group Number Insured Name Patient Relationship to Insured Coverage Start Date Coverage End Date [place] Medicare [address] [address] [place] [address] [id number] Francisco Emerson Self - patient is the insured [employer] [address] [address] [facility] [place] [address] [id number] Francisco Emerson Self - patient is the insured [place] Medicare [address] [place] [phone] [id number] Francisco Emerson Self - patient is the insured Medical (General) History Medical History History ICD Code measles mumps Arthritis migraine headaches High Blood Pressure Surgical History Surgery Date(Month/Year) Right shoulder Left knee right knee right hand left hand carpal tunnel release, right Abdominal Hospitalization History Reason Date(Month/Year) see sx
--- OUTSIDE RECORDS SUMMARY | 2025-01-15 13:59 | XMS_ITS ---
Author Organization [facility] Address [address] [place] [address] Care Team Providers Care Flux Mixer Name Role Phone Renny Gonzalez Primary Care Provider Marc Thompson [facility] [phone] REASON FOR VISIT LT HAND Medications Medication SIG (Take, Route, Frequency, Duration) [...] needed Orally Three times a day Active Encounters Encounter Location Date Provider Diagnosis [facility] [address] [place] [address] 01/06/2025 Marc Baca Postoperative state Z98.890 Assessments Encounter Date Diagnosis (ICD Code) Assessment Notes Treatment Notes Treatment Clinical Notes Section Notes 01/06/2025 Postoperative state (ICD-10 - Z98.890) Francisco is doing well. I told him that the improvement in pain is a good sign. I think the numbness in his thumb should continue to improve. 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 Francisco is seen after a right carpal tunnel release just over 2 weeks ago. He is here for a routine check. He describes some numbness in thumb but overall states the pain he had at night is much better. * Medical History:? * Surgical History:? * Hospitalization/Major Diagno stic Procedure:? * Medications:?TakingdiazePAM 10 MG Tablet 1 tablet as needed Orally Once a day hydroCHLOROthiazide 25 MG Tablet 1 tablet in the morning Orally Once a day Ibuprofen 200 MG Tablet 1 tablet with food or milk as needed Orally Three times a day Levothyroxine Sodium 100 MCG Capsule 1 capsule in the morning on an empty stomach Orally Once a day Lisinopril 10 MG Tablet 1 tablet Orally Once a day Omeprazole 40 MG Capsule Delayed Release 1 capsule 30 minutes before morning meal Orally Once a day predniSONE 5 MG Tablet 1 tablet Orally Once a day traZODone HCl 150 MG Tablet 1 tablet at bedtime Orally Once a day Vitamin B12 1000 MCG Tablet Extended Release as directed Orally Taking diazePAM 10 MG Tablet 1 tablet as needed Orally Once a day Taking hydroCHLOROthiazide 25 MG Tablet 1 tablet in the morning Orally Once a day Taking Ibuprofen 200 MG Tablet 1 tablet with food or milk as needed Orally Three times a day Taking Levothyroxine Sodium 100 MCG Capsule 1 capsule in the morning on an empty stomach Orally Once a day Taking Lisinopril 10 MG Tablet 1 tablet Orally Once a day Taking Omeprazole 40 MG Capsule Delayed Release 1 capsule 30 minutes before morning meal Orally Once a day Taking predniSONE 5 MG Tablet 1 tablet Orally Once a day Taking traZODone HCl 150 MG Tablet 1 tablet at bedtime Orally Once a day Taking Vitamin B12 1000 MCG Tablet Extended Release as directed Orally Objective: * Vitals:? * Examination: ???General Examination: ???On examination of the left wrist his incision is well healed. His sensation is grossly intact to light touch. He can reach a complete clenched fist as well as extend his digits. ??? Assessment: * Assessment: 1.?Postoperative state - Z98 .890 (Primary)??? Francisco is doing well. I told h im that the improvement in pain is a good sign. I think the numbness in his thumb should continue to improve. I will see him back on an as-needed basis Plan: * Treatment: * Procedure Codes:? Forms: * Billing Information: * Visit Code:? * Procedure Codes:? * Sign off status: Completed true * Provider:?Marc Baca MD Date:?01/06 Generated for Antonio wing/Adelina/eTransmitting on:?01/15/2025 01:58 PM CDT History and Physical Notes * HPI (History of Present Illness) Category Sub-Category Detail Notes Category Not es Provider Note Francisco is seen a fter a right carpal tunnel release just over 2 weeks ago. He is here for a routine check. He describes some numbness in thumb but overall states the pain he had at night is much better. Examination Category Sub-Category Detail Notes Category Not es General Examination On exami nation of the left wrist his incision is well healed. His sensation is grossly intact to light touch. He can reach a complete clenched fist as well as extend his digits.
--- OUTSIDE RECORDS SUMMARY | 2025-01-15 13:59 | XMS_ITS | Encounter Summary ---
Author Organization [facility] Address [address] [place] [address] Care Team Providers Care Public Housing Interviewer Name Role Phone Renny Gonzalez DO Primary Care Provider [phone] Encounter Details Date Type Department Care Team (Late st Contact Info) Description 05/05/[address] [facility] Dermatology- 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
--- OUTSIDE RECORDS SUMMARY | 2025-01-15 13:59 | XMS_ITS ---
Author Organization [facility] Address [address] [facility] [address] Care Team Providers Care Linux Unix Administrator Name Role Phone Renny Gonzalez Primary Care Provider Marc Thompson [phone] REASON FOR VISIT LT HAND Encounters Encounter Location Date Provider Diagnosis [facility] [address] [place] [address], [place] [address] 01/04/2025 Marc Baca Plan Of Treatment No Information Progress Notes * Francisco EMERSON KDOB:[birth year] (74 yo M)Acc No.[id number]:01/04/2025 Patient:?Francisco EMERSON Provider:?Marc Baca MD :1950???Age:74 Y???Sex:Male Kimani e:01/04/2025 Address:[address] [place], [place] [address] Pcp:Renny Gonzalez Subjective: * Chief Complaints: * ???1. LT HAND. * Medical History:? Objective: * Vitals:? Assessment: Plan: * Treatment: Forms: * Billing Information: * Visit Code:? * Procedure Codes:? * Electronic signature of Vinicio Baca MD on 01/15/2025 at 01:59 PM CDT Sign off status: Pending * Provider:?Marc Baca MD Date:?01/04 Generated for Printi ng/Fabog/eTransmitting on:?01/15/2025 01:59 PM CDT
--- OUTSIDE RECORDS SUMMARY | 2025-01-15 13:59 | XMS_ITS | Encounter Summary ---
Author Organization [facility] Address [address] [place] [address] Care Team Providers Care Quill Reamer Name Role Phone Renny Gonzalez DO Primary Care Provider [phone] Encounter Details Date Type Department Care Team (Late st Contact Info) Description 08/15/2004 Outpatient Historical [facility] Dermatology- 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
[2025-01-15] MEDS: ipratropium-albuterol 3 mL Neb INHALATION (17:23)
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
[2025-01-15] MEDS: enoxaparin 40 mg/0.4 mL Syringe SUBCUT (18:01)
[2025-01-15 19:31] LABS: MRSA PCR OZH (swab) NOT DETECTED (Negative)
[2025-01-15] MEDS: morphine 4 mg/mL SDV 1 mL 2 MG IVP (21:15)
[2025-01-15] MEDS: trazodone 150 mg Tablet PO (23:28)
[2025-01-16] VITALS (11 sets, daily range): BP systolic 115–127; BP diastolic 74–77; PULSE 90–102; RESP 16–20; TEMP 36.7–36.9; O2SAT 90–95
[2025-01-16] MEDS: ipratropium-albuterol 3 mL Neb INHALATION ×3 (01:58→13:49)
[2025-01-16 03:56] LABS: Basophils % 0.2 %; Eosinophils # 0.1 10^3/uL (0.0-0.8); Eosinophils % 1.1 %; Hematocrit 32.8 % (37-53); Lymphocytes # 2.3 10^3/uL (0.8-4.8); Lymphocytes % 21.9 %; Mean Corpuscular HGB Conc 31.7 g/dL (30-55); Mean Corpuscular Volume 94.5 fl (82-101); Monocytes # 0.6 10^3/uL (0.2-0.9); Monocytes % 5.4 %; Neutrophils # 7.43 10^3/uL (1.8-7.7); Nucleated Red Blood Cells % 0 %; Platelet Count 344 10^3/cmm (157-399); Red Blood Count 3.47 10^6/uL (3.85-5.65); Red Cell Distribution Width 13.2 % (12.1-15.1); White Blood Count 10.47 10^3/uL (3.29-11.43)
[2025-01-16 04:22] LABS: Alanine Aminotransferase 13 U/L (0-41); Albumin Level 3.2 g/dL (3.5-5.2); Alkaline Phosphatase 63 U/L (40-130); Anion Gap 13.4 (5-19); Aspartate Amino Transferase 9 U/L (0-40); Blood Urea Nitrogen 15 mg/dL (8-23); Calcium 8.3 mg/dL (8.5-10.5); Carbon Dioxide 23 mmol/L (22-29); Chloride 107 mmol/L (98-107); Globulin 2.4 g/dL (1.3-4.6); Glucose 115 mg/dL (65-115); Magnesium 1.7 mg/dL (1.7-2.3); Osmolality Calculated 292 mOsm/kg (285-295); Potassium 3.4 mmol/L (3.5-5.1); Sodium 140 mmol/L (136-145); Total Bilirubin 0.3 mg/dL (0.15-1.2); Total Protein 5.6 g/dL (6.6-8.7)
[2025-01-16] MEDS: pantoprazole DR 40 mg Tablet PO (08:31)
[2025-01-16] MEDS: lisinopril 10 mg Tablet PO (08:31)
[2025-01-16] MEDS: benzonatate 100 mg Capsule PO (08:31)
[2025-01-16] MEDS: levothyroxine 100 mcg Tablet PO (08:31)
[2025-01-16] MEDS: azithromycin 250 mg Tablet 500 MG PO (08:31)
[2025-01-16] MEDS: predniSONE 20 mg Tablet PO (08:31)
[2025-01-16] MEDS: hydroCHLOROthiazide 25 mg Tablet PO (08:31)
[2025-01-16] MEDS: cefTRIAXone 1,000 mg SDV 1000 MG IVP (12:49)
--- NOTE | 2025-01-16 15:46 | PC.SOCIAL ---
Patient didnt qualify for oxygen at this time
--- NOTE | 2025-01-16 16:41 | PC.NURSE ---
Discharge Note Patient discharged to home via private vehicle accompanied by . Discharge instructions reviewed with patient and/or market survey representative. Mobile pharmacy medications and/or prescriptions provided. Belongings/home medications returned.
[2025-01-18 07:11] LABS: Bacillus cereus group Not Detected (NOT DETECT); Bacillus subtillis group Not Detected (NOT DETECT); Corynebacterium Not Detected (NOT DETECT); Cutibacterium acnes (P.acnes) Not Detected (NOT DETECT); Enterococcus Not Detected (NOT DETECT); Enterococcus faecalis Not Detected (NOT DETECT); Enterococcus faecium Not Detected (NOT DETECT); Lactobacillus species Not Detected (NOT DETECT); Listeria Not Detected (NOT DETECT); Listeria monocytogenes Not Detected (NOT DETECT); Micrococcus Not Detected (NOT DETECT); Pan Candida Not Detected (NOT DETECT); Pan Gram-Negative Not Detected (NOT DETECT); Staphylococcus epidermidis Not Detected (NOT DETECT); Staphylococcus lugdunensis Not Detected (NOT DETECT); Staphylococcus species Not Detected (NOT DETECT); Streptococcus agalactiae Not Detected (NOT DETECT); Streptococcus anginosus group Not Detected (NOT DETECT); Streptococcus pneumoniae Not Detected (NOT DETECT); Streptococcus pyogenes Not Detected (NOT DETECT); Streptococcus species Not Detected (NOT DETECT)
--- NOTE | 2025-01-27 12:52 | PM.DCS ---
Discharge Providers Date of Admission: 01/15/25 12:41 Date of Discharge: 01/16/2025 Attending Provider at Admission: Amairani Zhu MD Attending Provider at Discharge: Kevin Hooks Primary Care Provider: Renny Gonzalez DO Diagnoses at Discharge Discharge Diagnosis (1) Community acquired pneumonia: Status: Acute (2) Hypoxia: Status: Acute Reason for Visit Reason for Visit: fever, unsteady Hospital Course Hospital Course 74-year-old male, was admitted to the hospital on January 15 after being referred from urgent care due to increasing generalized weakness and symptoms suggestive of fever, although no fever was recorded at home. Upon arrival at the emergency room, he was diagnosed with community-acquired pneumonia. Initial chest X-ray findings indicated a hazy consolidative opacity in the right mid-lung consistent with pneumonia and a hazy opacity at the left lung base, suggestive of a small pleural effusion or atelectasis, with possible superimposed infection. Laboratory results on January 16 showed improvement in white blood cell count to 10.47 x 10^3/uL, indicating a response to antibiotic therapy. However, anemia was noted, with hemoglobin and hematocrit levels below normal ranges, possibly due to chronic disease or acute illness effects. Electrolyte imbalances were present, including low potassium and calcium levels, which were monitored and addressed during his stay. The patient's pneumonia was treated with ceftriaxone and azithromycin, and supportive care included supplemental oxygen to maintain adequate saturation levels. A nasal MRSA screen was negative, and viral PCR tests for influenza, RSV, and SARS-CoV-2 were also negative, ruling out concurrent viral infections. Despite low albumin and total protein levels, which may reflect nutritional status or acute phase response, the patient's renal function remained stable, evidenced by normal creatinine levels. The patient was discharged on January 16 in stable condition, with a prescription for oral levofloxacin to complete his treatment course for pneumonia. His discharge plan included continued monitoring of anemia and electrolyte imbalances, with follow-up recommendations to ensure resolution of these issues. Overall, the patient's condition improved with the treatment provided, allowing for safe discharge from the hospital. Physical Exam Narrative: General: No acute distress, AO x3 HEENT: PERRLA, pupils bilaterally equal and reactive, pallors not present Chest: Normal vesicular breath sounds, no added sounds, equal good air entry bilaterally CVS: S1-S2 regular, no murmurs, no tachycardia, no gallops, no rubs Abdomen: Soft, nontender, no organomegaly, bowel sounds present Neuro: No focal deficits, no facial deformity, AO x3, power 5/5 in all limbs Discharge Data Studies Completed and Pending Completed Studies During Hospitalization Category Date Time Status XR chest 1V portable [id number] Stat Exams 01/15/25 11:12 Completed Radiology Impressions Chest X-Ray 01/15/25 11:12 IMPRESSION: 1. Hazy consolidative opacity in the right mid lung concerning for pneumonia. 2. Hazy opacity at the left lung base likely reflecting small pleural effusion and/or atelectasis although superimposed infectious etiology is not excluded. Laboratory Results WBC 10.47 10^3/uL (3.29-11.43) 01/16/25 03:21 RBC 3.47 10^6/uL (3.85-5.65) L 01/16/25 03:21 Hgb 10.40 g/dL (11.27-16.99) L 01/16/25 03:21 Hct 32.8 % (37-53) L 01/16/25 03:21 MCV 94.5 fl (82-101) 01/16/25 03:21 MCH 30.0 pg (27-33) 01/16/25 03:21 MCHC 31.7 g/dL (30-55) 01/16/25 03:21 RDW 13.2 % (12.1-15.1) 01/16/25 03:21 Plt Count 344 10^3/cmm (157-399) 01/16/25 03:21 MPV 10.0 fL (7.4-10.4) 01/16/25 03:21 Neut % (Auto) 71.0 % 01/16/25 03:21 Lymph % (Auto) 21.9 % 01/16/25 03:21 [place] % (Auto) 5.4 % 01/16/25 03:21 Eos % (Auto) 1.1 % 01/16/25 03:21 Baso % (Auto) 0.2 % 01/16/25 03:21 Neut # (Auto) 7.43 10^3/uL (1.8-7.7) 01/16/25 03:21 Lymph # (Auto) 2.3 10^3/uL (0.8-4.8) 01/16/25 03:21 [place] # (Auto) 0.6 10^3/uL (0.2-0.9) 01/16/25 03:21 Eos # (Auto) 0.1 10^3/uL (0.0-0.8) 01/16/25 03:21 Baso # (Auto) 0.0 10^3/uL (0.0-0.1) 01/16/25 03:21 Nucleated RBC % (auto) 0 % 01/16/25 03:21 Nucleated RBCs # 0.0 /100WBC 01/16/25 03:21 PT 12.40 SECONDS (12.1-14.9) 01/15/25 11:23 INR 0.87 (0.8-1.2) 01/15/25 11:23 Sodium 140 mmol/L (136-145) 01/16/25 03:21 Potassium 3.4 mmol/L (3.5-5.1) L 01/16/25 03:21 Chloride 107 mmol/L (98-107) 01/16/25 03:21 Carbon Dioxide 23 mmol/L (22-29) 01/16/25 03:21 Anion Gap 13.4 (5-19) 01/16/25 03:21 BUN 15 mg/dL (8-23) 01/16/25 03:21 Creatinine 0.9 mg/dL (0.7-1.2) 01/16/25 03:21 GFR Calculation Not Reportable 01/16/25 03:21 Glucose 115 mg/dL (65-115) 01/16/25 03:21 Calculated Osmolality 292 mOsm/kg (285-295) 01/16/25 03:21 Lactic Acid 1.6 mmol/L (0.5-2.2) 01/15/25 11:23 Calcium 8.3 mg/dL (8.5-10.5) L 01/16/25 03:21 Magnesium 1.7 mg/dL (1.7-2.3) 01/16/25 03:21 Total Bilirubin 0.3 mg/dL (0.15-1.2) 01/16/25 03:21 AST 9 U/L (0-40) 01/16/25 03:21 ALT 13 U/L (0-41) 01/16/25 03:21 Alkaline Phosphatase 63 U/L (40-130) 01/16/25 03:21 Total Protein 5.6 g/dL (6.6-8.7) L 01/16/25 03:21 Albumin 3.2 g/dL (3.5-5.2) L 01/16/25 03:21 Globulin 2.4 g/dL (1.3-4.6) 01/16/25 03:21 TSH 1.62 uIU/mL (0.27-4.20) 01/15/25 11:23 Nasal MRSA (PCR) Not detected (Negative) 01/15/25 18:11 Influenza A (PCR) Negative (Negative) 01/15/25 11:54 Influenza Type B (PCR) Negative (Negative) 01/15/25 11:54 RSV (PCR) Negative (Negative) 01/15/25 11:54 SARS-CoV-2 (PCR) Negative (Negative) 01/15/25 11:54 Vitals Last Vital Signs Temp 98.4 F 01/16/25 16:42 Pulse 98 01/16/25 16:42 Resp 16 01/16/25 16:42 BP 116/75 01/16/25 16:42 Pulse Ox 90 01/16/25 16:42 O2 Del Method Room Air 01/16/25 15:36 O2 Flow Rate 2 01/16/25 11:11 Discharge Plan Discharge Patient Disposition: Home Condition: Stable Prescriptions: Continued Trelegy Ellipta 100-62.5-25 mcg blister with device 1 inh inhalation DAILY Qty: 28 5RF hydrochlorothiazide 25 mg tablet 25 mg PO DAILY Qty: 90 3RF bupropion HCl 75 mg tablet 75 mg PO BID Qty: 60 5RF lisinopril 10 mg tablet 10 mg PO DAILY Qty: 90 3RF diazepam 5 mg tablet 5 mg PO TID PRN (Reason: Anxiety) 30 Days Qty: 90 5RF trazodone 150 mg tablet 150 mg PO DAILY Qty: 90 3RF fluticasone propionate 50 mcg/actuation spray,suspension 1 spray INTRANASAL BID Qty: 16 11RF Rx Instructions: administer into each nostril prednisone 5 mg tablet 5 mg PO DAILY Rx Instructions: TAKE 1 TABLET BY MOUTH EVERY DAY FOR inflammation omeprazole 40 mg capsule,delayed release(DR/EC) 40 mg PO DAILY Rx Instructions: take 1 capsule BY MOUTH EVERY DAY No Action levothyroxine 100 mcg tablet 100 mcg PO DAILY Qty: 90 1RF Rx Instructions: TAKE ONE TABLET BY MOUTH DAILY Discharge Orders: Discharge Order (Routine); Ordered 01/16/25 Ordered By: Kevin Hooks Referrals: Renny Gonzalez, [Primary Care Provider] - 4-7 days (We have notified your physician's clinic of the need for a follow-up appointment to be scheduled. If you have not heard from them within the next 2 business days, please call them directly. ) Discharge Diet: Usual diet Discharge Activity: Increase activity as tolerated Patient Instructions: Levofloxacin (By mouth) (Levaquin, Levaquin Leva-kieran), Levofloxacin (By mouth), Community Acquired Pneumonia (DC), Hypoxia (ED), Opioid Safety Activity Restrictions/Additional Instructions: Symptoms Monitoring: ? Monitor your symptoms closely. If you experience worsening symptoms such as increased shortness of breath, chest pain, high fever, or confusion, seek medical attention promptly. ? Keep track of your temperature and respiratory status. Persistent fever or difficulty breathing should be reported to your healthcare provider. Activity and Rest: ? Rest is crucial for recovery. Gradually resume normal activities as you feel better, but avoid strenuous activities until you have fully recovered. ? Stay hydrated and maintain a balanced diet to support your immune system. Follow-Up: ? Schedule a follow-up appointment with your primary ocular care technician within one week after discharge to ensure proper recovery and to address any concerns. Discharge Attestations Time Spent in Discharge Care*: greater than 30 min Status at Discharge: Cognitive status at discharge: cognitively intact, Behavioral status at discharge: cooperative, Functional status at discharge: independent ambulation, Overall status at discharge: patient is back to baseline Quality Metrics Clinical Quality Measures [ No reported AMI, CVA or VTE this stay] Coding Level of Care Code Acute Code for [facility] Fwd Diagnoses Community acquired pneumonia J18.9 Hypoxia R09.02
== END 2025-01-16 16:51 | disposition home or self-care (01) | DRG 194 ==
LOC: ER 12:47 → ER IP 13:11 → MEDSURG 13:57
PROVIDERS: Admitting Provider Student in an Organized Health Care Education/Training Program; Emergency Provider Emergency Medicine; PCP Family Medicine; Visit Provider Hospitalist
DX: J18.9 Pneumonia, unspecified organism (principal); J44.0 Chronic obstructive pulmonary disease with (acute) lower respiratory infection; R09.02 Hypoxemia; Z79.51 Long term (current) use of inhaled steroids; Z79.891 Long term (current) use of opiate analgesic; M06.00 Rheumatoid arthritis without rheumatoid factor, unspecified site; Z79.52 Long term (current) use of systemic steroids; E03.9 Hypothyroidism, unspecified; I10 Essential (primary) hypertension; K21.9 Gastro-esophageal reflux disease without esophagitis; I25.10 Atherosclerotic heart disease of native coronary artery without angina pectoris
CPT/HCPCS: 36415; 71045; 80053; 81000; 83605; 83735; 84443; 85025; 85610; 86403; 87040; 87070; 87150; 87205; 87449; 87637; 93005; 94640; 94760; 96365; 96372; 96375; 99285; J0456; J0696; J1650; J2270; J7030; J7050; J7512; J9999; Q0144

== ENCOUNTER 2025-02-22 15:19 | Outpatient (CLI) | payer MEDICARE, OTHER, SELFPAY ==
--- NOTE | 2025-02-22 15:24 | XR_ITS ---
WS: [id number] Chest 2 views, 02/22/2025 Clinical Data: J18.9 - Pneumonia, unspecified organism Comparison: Portable chest, 01/15/2025 Findings: No nodules, masses or effusions are seen. The heart is normal. The pulmonary vascularity is not increased. No pneumonia or pneumothorax is seen. The previous patchy opacity in the right midlung has cleared. The aortic arch and descending thoracic aorta show tortuosity. The diaphragms are flattened. There is a hiatal hernia behind the heart. XR/XR chest 2V* [id number] Impression: 1. Cleared pneumonia. 2. Atherosclerosis. 3. Hyperinflation.
== END 2025-02-22 15:20 | disposition home or self-care (01) ==
LOC: RAD 15:23
PROVIDERS: PCP Family Medicine; Visit Provider Family Medicine
DX: J18.9 Pneumonia, unspecified organism (principal); R91.8 Other nonspecific abnormal finding of lung field; K44.9 Diaphragmatic hernia without obstruction or gangrene; I70.90 Unspecified atherosclerosis
CPT/HCPCS: 71046

== ENCOUNTER → 2025-08-07 08:21 | Outpatient (BNVA) | payer MEDICARE, OTHER, SELFPAY | PROVIDERS: PCP Family Medicine; Visit Provider Family Medicine | DX: E03.9 Hypothyroidism, unspecified (principal); Z79.899 Other long term (current) drug therapy; F32.A Depression, unspecified; I10 Essential (primary) hypertension; R05.3 Chronic cough; R79.82 Elevated C-reactive protein (CRP) | CPT/HCPCS: 80053; 82607; 84443; 85025; 86140 ==